=== PATIENT | female | born 1930 | race Caucasian/White ===

== ENCOUNTER 2016-08-07 23:42 | Day surgery (SDC) | payer OTHER, MEDICARE ==
[~2016-08-07] VITALS: Ht 154.9 cm; Wt 90.7 kg
--- NOTE | 2016-08-08 | NUR ---
DR AGUIRRE IN FOR MONIQUEAL
--- NOTE | 2016-08-08 00:04 | ED GENERAL ADULT ---
History of Present Illness General Chief Complaint: Upper Extremity Problem Stated Complaint: "PER PT RT ARM PAIN" Source: patient, family, old records Exam Limitations: no limitations Vital Signs & Intake/Output Vital Signs & Intake/Output Vital Signs Date Time Temp Pulse Resp B/P B/P Pulse O2 O2 Flow FiO2 Mean Ox Delivery Rate 08/08 0012 96.7 74 18 94/55 97 Room Air Allergies Coded Allergies: adhesive (UNKNOWN 08/03/15) Reconcile Medications Amlodipine Besylate 5 MG TABLET 1 TAB PO DAILY HTN (Reported) Calcium Carbonate/Vitamin D3 (Oysco D Tablet) 1 EACH TABLET 1 TAB PO DAILY SUPPLEMENT (Reported) Gabapentin 300 MG CAPSULE 1 CAP PO BID NEUROPATHY (Reported) Hydralazine HCl 50 MG TABLET 1 TAB PO BID HTN (Reported) Insulin Detemir (Levemir Flextouch) 100 UNIT/ML (3 ML) INSULN.PEN 8 UNITS DAILY DM II (Reported) Levothyroxine Sodium 125 MCG TABLET 1 TAB PO DAILY HYPOTHYROID (Reported) Losartan Potassium 50 MG TABLET 50 MG PO DAILY Blood Pressure Metoprolol Succ XL (Toprol Xl) 50 MG TAB HTN (Reported) Nephro-Vitamins (Nephro-Danis Tablet) 0.8 MG TABLET 1 TAB PO DAILY Supplement. Repaglinide (Prandin) 1 MG TABLET 1 MG PO 0800,1200,1700 Diabetes. Please take 1 mg, before each meal, breakfast, lunch and dinner. If you skip any meal, please do not take this medication. Simvastatin (Zocor*) 20 MG TABLET 1 TAB PO QPM CHOLESTEROL (Reported) Triage Nurses Notes Reviewed? yes HPI: Patient had a shunt placed in her right upper extremity on 08/07/2016. Patient was discharged home at approximately 4:30 in the afternoon. Family was instructed to keep an eye on her right hand and make sure it did not turn cyanotic to the touch. Patient took Tylenol and was able to fall asleep in a recliner. Patient woke up with extreme pain to her right hand. The pain is pins and needles like in description. The pain is constant. There are no aggravating or mitigating factors. There is no radiation. Family noticed that her hand was very cold to touch and very pale in color. Patient was brought in for evaluation. Pain is currently 8 out of 10. Past History Travel History Traveled to [place] past 21 day No Medical History Any Pertinent Medical History? see below for history Neurological: NEUROPATHY EENT: NONE Cardiovascular: hypertension Respiratory: bronchitis, COPD Gastrointestinal: NONE Hepatic: GALL STONES Renal: NONE (nephrotic sydrome), chronic kidney disease (stage 3) Musculoskeletal: NONE Psychiatric: NONE Endocrine: diabetes, hypothyroidism Blood Disorders: NONE Cancer(s): breast cancer, lung cancer CHILD GUIDANCE COUNSELOR/Reproductive: NONE Other Medical Hx: FHx: negative ESRD History of MRSA: No History of VRE: No History of CDIFF: Yes Pneumonia Vaccine: 10/09/14 Influenza Vaccine: 12/16/15 Surgical History Surgical History: cholecystectomy, LT BREAST REMOVAL lung cancer status post gammaknife Psychosocial History Who do you live with Son Services at Home None What is your primary language Panamanian Tobacco Use: Never used ETOH Use: denies use Illicit Drug Use: denies illicit drug use Family History Family History, If Any: MOTHER FH: myocardial infarction, Onset: 40-50. FH: stroke, Onset: 40-50. Hx Contributory? No Review of Systems Review of Systems Constitutional: Reports: no symptoms. EENTM: Reports: no symptoms. Respiratory: Reports: no symptoms. Cardiovascular: Reports: no symptoms. GI: Reports: no symptoms. Genitourinary: Reports: no symptoms. Musculoskeletal: Reports: see HPI. Skin: Reports: see HPI. Neurological/Psychological: Reports: no symptoms. Hematologic/Endocrine: Reports: no symptoms. Immunologic/Allergic: Reports: no symptoms. All Other Systems: Reviewed and Negative Physical Exam Physical Exam General Appearance: well developed/nourished, alert, awake, anxious, moderate distress Head: atraumatic Eyes: Bilateral: PERRL, EOMI. Ears, Nose, Throat: normal pharynx, normal ENT inspection, hearing grossly normal Neck: normal inspection, supple, full range of motion Respiratory: normal breath sounds, chest non-tender, no respiratory distress, lungs clear Cardiovascular: regular rate/rhythm, NO PULSE TO RIGHT RADIAL Gastrointestinal: normal bowel sounds, soft, non-tender, no organomegaly Back: normal inspection, vertebral tenderness Extremities: RIGHT HAND IS PALE AND COOL TO TOUCH, NO PALPABLE THRILL BUT THERE IS A BRUIT. Neurologic/Psych: awake, alert, oriented x 3, normal gait, normal mood/affect, DECREASED SENSATION RIGHT HAND Skin: RIGHT HAND PALE AND CAP REFILL PROLONGED Core Measures ACS in differential dx? No CVA/TIA Diagnosis: No Severe Sepsis Present: No Septic Shock Present: No Progress Differential Diagnoses I considered the following diagnoses in my evaluation of the patient: [VASCULAR INSUFFICINECY] Plan of Care: Orders Procedure Date/time Status Nothing by Mouth 08/08 B Active US-UPPER EXT BILAT DOPP ARTER 08/08 699 Active PARTIAL THROMBOPLASTIN TIME 08/08 149 Active PROTHROMBIN TIME 08/08 149 Active COMPREHENSIVE METABOLIC PANEL 08/08 149 Active CBC WITHOUT DIFFERENTIAL 08/08 149 Active Pathway - chart 08/09 147 Active Patient Data 08/09 147 Active Code Status 08/09 147 Active Admit to inpatient 08/09 139 Active EKG 08/09 139 Active VTE Mechanical Prophylaxis 08/08 UNK Active Vital Signs 08/08 UNK Active Intake & Output 08/08 UNK Active FingerStick- Glucose 08/08 UNK Active Activity/Ambulation 08/08 UNK Active Current Medications Sig/Stevenson Start time Last Medication Dose Stop Time Status Admin Clopidogrel Bisulfate 75 MG DAILY 08/08 0215 AC (Plavix) Heparin Sodium 25,000 UNIT Q24H 08/08 0200 CAN (Porcine) (Heparin) Sodium Chloride 500 ML Acetaminophen 500 MG Q6P PRN 08/08 014 AC (Tylenol) Dextrose/Sodium 1,000 ML .Q20H 08/08 0145 AC Chloride (D5-Normal Saline) Ondansetron HCl 4 MG Q8P PRN 08/08 014 AC (Zofran) CONSULT VASCULAR (CARLA MONGE,SONY Garrett) Initial ED EKG: NSR, nonspecific ST T wave chg, FIRST DEGREE HB Prior EKG: unchanged Departure Departure Disposition: STILL A PATIENT Condition: Stable Clinical Impression Primary Impression: Steal syndrome dialysis vascular access Referrals: TOÑITO MONGE,BRENDAN Ocampo (PCP/Family) Departure Forms: Customer Survey General Discharge Information Admission Note Spoke With: BERNADETTE LEHMAN MD Documentation of Exam: Documentation of any treatments & extenuating circumstances including Concerns Regarding Discharge (functional status, medication knowledge or non-compliance, living conditions, etc.) that warrant an admission rather than observation: [ Admitted to the vascular service with medicine consultation. Patient will need renal consultation and dialysis today.] Critical Care Note Critical Care Note Critical Care Time: non-applicable
--- NOTE | 2016-08-08 00:13 | NUR ---
85/F PRESENTS TO ED WITH C/C RIGHT ARM SEVERE PAIN /10 STARTED AT ABOUT 4PM YESTERDAY. S/P FISTULA SHUNT PLACEMENT YESTERDAY MORNING. RIGHT ARM PALE, NO SENSATION, NEGATIVE CAPILLARY REFILL. POSITIVE BRUIT AND NEGATIVE THRILL. UNABLE TO OBTAIN PERIPHERAL PULSE VIA DOBBLER. DR. AGUIRRE NOTIFIED. MEDICATED WITH TYLENOL NO. 3 AT THIS TIME.
--- NOTE | 2016-08-08 01:21 | NUR ---
SURGICAL JUSTIN CHANDLER IN ROOM EVALUATING THE PT.
--- NOTE | 2016-08-08 01:40 | NUR ---
PT ON DIALYSIS SUNDAY/SUNDAY/SUNDAY. DIALYSIS CATHETER ON RIGHT UPPER CHEST WALL.
--- NOTE | 2016-08-08 02:11 | Admission Core Measures ---
Admission Meds I reviewed the following Meds: Current Medications Sig/Stevenson Start time Last Medication Dose Stop Time Status Admin Acetaminophen 500 MG Q6P PRN 08/08 144 UNVr (Tylenol) Clopidogrel Bisulfate 75 MG DAILY 08/08 214 UNVr (Plavix) Dextrose/Sodium 1,000 ML .Q20H 08/08 144 UNVr Chloride (D5-Normal Saline) Heparin Sodium 25,000 UNIT Q24H 08/08 020 CAN (Porcine) (Heparin) Sodium Chloride 500 ML Ondansetron HCl 4 MG Q8P PRN 08/08 144 AC (Zofran) Acute Coronary Syndrome Inclusion Criteria ACS Diagnosis No Inpatient Core Measures LDL Reminder: If No, please order W/I first 24hr of stay Congestive Heart Failure Inclusion Criteria CHF Diagnosis No Cerebrovascular accident Inclusion Criteria CVA/TIA Diagnosis No Inpatient Core Measures Bedside Swallow Eval Reminder: If BSE failed, place ST order Antithrombotic Reminder: Order Antithrombotic Medication by end of day 2 Antithrombotic Reminder: Document Reason Antithrombotic Not ordered by end of day 2 AFIB/Flutter Reminder: If Present, add to problem list AFIB/Flutter Reminder: Order Anticoag Medication for pts with AFIB/Flutter Atherosclerosis Reminder: If Present, add to problem list LDL Reminder: If No, please order W/I first 24hr of stay PT Order Reminder: If No, please order Venous thromboembolism Inpatient Core Measures VTE Risk Factors: Acute medical illness, Age > 40 No [facility] VTE prophylaxis d/t No contraindications No VTE 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 - Parenteral Anticoagulation (IV or SC) needs to be - given along with Warfarin therapy. VTE Diagnosis No VTE Type NONE VTE Confirmed by (Test) NONE Problem List As ranked by this Provider includes Assessment & Plan 1. Steal syndrome dialysis vascular access HOME MEDS Home Med List Amlodipine Besylate 5 MG TABLET 1 TAB PO DAILY HTN (Reported) Calcium Carbonate/Vitamin D3 (Oysco D Tablet) 1 EACH TABLET 1 TAB PO DAILY SUPPLEMENT (Reported) Gabapentin 300 MG CAPSULE 1 CAP PO BID NEUROPATHY (Reported) Hydralazine HCl 50 MG TABLET 1 TAB PO BID HTN (Reported) Insulin Detemir (Levemir Flextouch) 100 UNIT/ML (3 ML) INSULN.PEN 8 UNITS DAILY DM II (Reported) Levothyroxine Sodium 125 MCG TABLET 1 TAB PO DAILY HYPOTHYROID (Reported) Losartan Potassium 50 MG TABLET 50 MG PO DAILY Blood Pressure Nephro-Vitamins (Nephro-Danis Tablet) 0.8 MG TABLET 1 TAB PO DAILY Supplement. Repaglinide (Prandin) 1 MG TABLET 1 MG PO 0800,1200,1700 Diabetes. Simvastatin (Zocor*) 20 MG TABLET 1 TAB PO QPM CHOLESTEROL (Reported)
--- NOTE | 2016-08-08 02:30 | History & Physical ---
General Information and HPI History of Present Illness: 85-year-old female with extensive past medical history presents to the emergency department with complaint of pain, coolness and lack of pulse in her right hand. Approximately 12 hours ago she underwent AV fistula creation with graft in her right upper extremity. Details about this procedure unknown as there is no operative note in the computer. Per family she left that hospital today around 4 PM and her hand at that time was cool and pulseless. Since her arrival home her hand has become more cool and more painful. Tylenol is not helping with the pain in the Donte treatment in the emergency department. Here in the ER she is given Tylenol with Codeine which has lessened her symptoms. Per the ER, in no pulse or Doppler signal has been appreciated in the right hand. Of note she is due for dialysis today 08/08/2016. She has a right- sided permacath for access. Allergies/Medications Allergies: Coded Allergies: adhesive (UNKNOWN 08/03/15) Home Med list Amlodipine Besylate 5 MG TABLET 1 TAB PO DAILY HTN (Reported) Calcium Carbonate/Vitamin D3 (Oysco D Tablet) 1 EACH TABLET 1 TAB PO DAILY SUPPLEMENT (Reported) Gabapentin 300 MG CAPSULE 1 CAP PO BID NEUROPATHY (Reported) Hydralazine HCl 50 MG TABLET 1 TAB PO BID HTN (Reported) Insulin Detemir (Levemir Flextouch) 100 UNIT/ML (3 ML) INSULN.PEN 8 UNITS DAILY DM II (Reported) Levothyroxine Sodium 125 MCG TABLET 1 TAB PO DAILY HYPOTHYROID (Reported) Losartan Potassium 50 MG TABLET 50 MG PO DAILY Blood Pressure Metoprolol Succ XL (Toprol Xl) 50 MG TAB HTN (Reported) Nephro-Vitamins (Nephro-Danis Tablet) 0.8 MG TABLET 1 TAB PO DAILY Supplement. Repaglinide (Prandin) 1 MG TABLET 1 MG PO 0800,1200,1700 Diabetes. Please take 1 mg, before each meal, breakfast, lunch and dinner. If you skip any meal, please do not take this medication. 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 FH: stroke, Onset: 40-50. Psychosocial History Who Do You Live With? spouse Services at Home: None ETOH Use: denies use Illicit Drug Use: denies illicit drug use Functional Ability Ambulation: walker Review of Systems Review of Systems Constitutional: Reports: see HPI. Exam & Diagnostic Data Last 24 Hrs of Vital Signs/I&O Vital Signs Date Time Temp Pulse Resp B/P B/P Pulse O2 O2 Flow FiO2 Mean Ox Delivery Rate 08/08 0012 96.7 74 18 94/55 97 Room Air Intake & Output 08/08 0800 08/08 0000 08/07 1600 Intake Total 50 Output Total Balance 50 Intake, Oral 50 Patient 200 lb Weight Physical Exam Cardiovascular Normal S1, Normal S2 Lungs Clear to Auscultation Abdomen Soft, No Tenderness Vascular RIGHT UPPER EXTREMITY: nO RADIAL PULSE, NO RADIAL SIGNAL, RIGHT-HAND COOL TO TOUCH, PALE, DECREASED CAPILLARY REFILL, GROSS MOTOR AND SENSORY INTACT THOUGH DECREASED WHEN COMPARED TO LEFT HAND. sURGICAL DRESSINGS INTACT WITH BLOODY STAINING UNDER ADHESIVE DRESSING Assessment/Plan Assessment: 85-year-old female with a steal syndrome in her right upper extremity due to AV fistula creation with graft approximately 12 hours ago, currently with limited motor and sensory of the right hand, which is cool and pale and without radial pulse or dopplerable signals. Case assessment with Dr. Matos. Patient will be admitted to vascular surgery service. She'll be kept nothing by mouth with IV fluid hydration. Nonessential home medications will be held. Plavix to start now. Arterial ultrasound of the right upper extremity in the morning. Dr. Matos will be in the morning to reevaluate. She will likely require surgical intervention for this steal syndrome. Medical team to consult for medical comanagement, As Ranked By This Provider Problem List: 1. Steal syndrome dialysis vascular access Core Measures/Miscellaneous Acute Coronary Syndrome ACS Diagnosis: No Cerebrovascular Accident CVA/TIA Diagnosis: No Congestive Heart Failure CHF Diagnosis: No Venous Thromboembolism VTE Risk Factors: Age > 40 [facility] d/t: No contraindications No VTE Pharm Prophylaxis d/t: No contraindications VTE Diagnosis: No VTE Type: NONE VTE Confirmed by (Test): NONE Severe Sepsis Severe Sepsis Present: No Septic Shock Septic Shock Present: No Miscellaneous Documentation Attending Case Discussed With: LAKE HENDRIX MD Primary Care Physician: BRENDAN SIBLEY MD Patient sees these Specialists na Level of Patient Care: General Surgical
--- NOTE | 2016-08-08 02:40 | NUR ---
IV #24 ESTABLISHED ON RIGHT HAND. LABS DRAWN AND SENT. PLAVIX PO AND D5 NS UP INFUSING AT 50ML/HR ORDERED.
[2016-08-08 02:45] LABS: ABSOLUTE BASOPHIL COUNT 0 /CUMM (0.0-0.2); ABSOLUTE EOSINOPHIL COUNT 0.2 /CUMM (0.0-0.7); ABSOLUTE GRANULOCYTE CT 3.8 /CUMM (1.4-6.5); ABSOLUTE LYMPH COUNT 1.3 /CUMM (1.2-3.4); ABSOLUTE MONOCYTE COUNT 0.4 /CUMM (0.10-0.60); BASOPHIL % 0.3 % (0.0-2.0); EOSINOPHIL % 3.1 % (0-5); HEMATOCRIT 30.1 % (37-47); MEAN CORPUSCULAR HGB 32.9 PG (27.0-31.0); MEAN CORPUSCULAR HGB CONC 33.3 G/DL (33.0-37.0); MEAN CORPUSCULAR VOLUME 98.6 FL (81.0-99.0); MEAN PLATELET VOLUME 5.8 FL (7.4-10.4); PLATELET COUNT 189 /CUMM (130-400); RBC DISTRIBUTION WIDTH 15.4 % (11.5-14.5); RED BLOOD CELL CT 3.05 /CUMM (4.20-5.40); WHITE BLOOD CELL COUNT 5.7 /CUMM (4.8-10.8)
[2016-08-08 02:53] LABS: PT 11.2 SEC (9.4-12.5); PTT 32 SEC (25-37)
--- NOTE | 2016-08-08 02:54 | NUR ---
FINGERSTICK GLUCOSE LEVEL READING 195
--- NOTE | 2016-08-08 03:00 | NUR ---
RIGHT HAND STILL PALE, POSITIVE MOVEMENT AND SENSATION. UNABLE TO PALPATE RADIAL PULSE. IV INFUSING WITHOUT ISSUES. NO C/O PAIN AT THIS TIME.
--- NOTE | 2016-08-08 03:03 | Cons- Medical ---
SUNNY SPENCER 08/08/16 0303: General Information and HPI Consulting Request Date of Consult: 08/08/16 Requested By: BERNADETTE LEHMAN MD Reason for Consult: ESRD Source of Information: patient, family, old records Exam Limitations: no limitations History of Present Illness: Mrs. Puga is a pleasant 85-year-old female with significant past medical history of left-sided lung adenocarcinoma status post CyberKnife, with recently confirmed right-sided lung cancer by biopsy [has an appointment to f/u for CyberKnife evaluation on August 31], left sided breast cancer s/p surgery and LN dissection, hypothyroidism, diabetes, HTN and heparin-induced thrombocytopenia. She also has a significant past medical history of end-stage renal disease secondary to diabetes, on hemodialysis Sunday, , Sunday who had an AV fistula creation with graft in her right upper extremity earlier this afternoon. She presented to the emergency department this evening with complaints of right hand pain from the elbow down, pallor and paresthesias. Per her son and [id number] or sitting at the bedside, she had similar complaints after the procedure finished at approximately 4:30. They also note that she did not have radial pulses at that time. At the time of the interview she stated that her pain had significantly improved. Of note she was given Tylenol with codeine in the emergency department. Aside from her paresthesias and pain, she has no other acute complaints. She denies any chest pain, dyspnea, palpitations, lightheadedness, dizziness, diplopia, or tinnitus. She also denies any fever, chills, diaphoresis, nausea/vomiting, constipation or diarrhea. Of note, since being discharged from rehabilitation in December 2015, the patient has been nonambulatory and wheelchair bound. In the emergency department, vitals were temperature 96.7, pulse rate 74, respiratory 18, blood pressure 94/55 saturating 97% on room air. Labs were significant for H&H 10/30.1, platelet count 189. Chemistry significant for sodium 133, potassium 4.5, BUNs/creatinine 4.3/4.0. Glucose 152. Allergies/Medications Allergies: Coded Allergies: heparin (Severe, HEPARIN INDUCED THROMBOCYTOPINIA 08/08/16) adhesive (UNKNOWN 08/03/15) Home Med List: Amlodipine Besylate 5 MG TABLET 1 TAB PO DAILY HTN (Reported) Calcium Carbonate/Vitamin D3 ([place] D Tablet) 1 EACH TABLET 1 TAB PO DAILY SUPPLEMENT (Reported) Gabapentin 300 MG CAPSULE 1 CAP PO BID NEUROPATHY (Reported) Hydralazine HCl 50 MG TABLET 1 TAB PO BID HTN (Reported) Insulin Detemir (Levemir Flextouch) 100 UNIT/ML (3 ML) INSULN.PEN 8 UNITS DAILY DM II (Reported) Levothyroxine Sodium 125 MCG TABLET 1 TAB PO DAILY HYPOTHYROID (Reported) Losartan Potassium 50 MG TABLET 50 MG PO DAILY Blood Pressure Metoprolol Succ XL (Toprol Xl) 50 MG TAB HTN (Reported) Nephro-Vitamins (Nephro-Danis Tablet) 0.8 MG TABLET 1 TAB PO DAILY Supplement. Repaglinide (Prandin) 1 MG TABLET 1 MG PO 0800,1200,1700 Diabetes. Please take 1 mg, before each meal, breakfast, lunch and dinner. If you skip any meal, please do not take this medication. Simvastatin (Zocor*) 20 MG TABLET 1 TAB PO QPM CHOLESTEROL (Reported) Current Medications: Current Medications Sig/[place] Start time Last Medication Dose Route Stop Time Status Admin Acetaminophen 500 MG Q6P PRN 08/08 0145 AC PO Clopidogrel Bisulfate 225 MG ONCE ONE 08/08 314 DCr PO 08/08 031 Clopidogrel Bisulfate 225 MG ONCE ONE 08/08 031 UNVr PO 08/08 031 Clopidogrel Bisulfate 0 .STK-MED ONE 08/08 0223 DC PO Clopidogrel Bisulfate 75 MG DAILY 08/08 0215 AC / PO 0239 Dextrose/Sodium 1,000 ML .Q20H 08/08 0145 AC / Chloride IV 0239 Heparin Sodium 25,000 UNIT Q24H 08/08 0200 CAN (Porcine) IV Sodium Chloride 500 ML Insulin Human Regular 0 Q6 08/08 0233 AC SC Ondansetron HCl 4 MG Q8P PRN 08/08 0145 AC IV Review of Systems Review of Systems Constitutional: Reports: see HPI. 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 FH: stroke, Onset: 40-50. Psychosocial History Who Do You Live With? spouse Services at Home: None ETOH Use: denies use Illicit Drug Use: denies illicit drug use Functional Ability Ambulation: walker Exam & Diagnostic Data Last 24 Hrs of Vital Signs/I&O Vital Signs Date Time Temp Pulse Resp B/P B/P Pulse O2 O2 Flow FiO2 Mean Ox Delivery Rate 08/08 0256 95.9 71 20 105/55 91 Room Air 08/08 0012 96.7 74 18 94/55 97 Room Air Intake & Output 08/08 0800 08/08 0000 08/07 1600 Intake Total 50 Output Total Balance 50 Intake, Oral 50 Patient 90.718 kg Weight Physical Exam General Appearance: well developed/nourished, no apparent distress, alert, awake , comfortable Head: atraumatic, normal appearance Ears, Nose, Throat: normal ENT inspection Neck: normal inspection, supple Respiratory: chest non-tender, no respiratory distress, quiet respiration, rales (at the bases BL) Cardiovascular: regular rate/rhythm, 2/6 systolic murmur Peripheral Pulses: 0 radial (R), 4+ radial (L) Gastrointestinal: normal bowel sounds, soft, non-tender Extremities: +2 BL LE edema to the proximal wood Neurologic/Psych: Sensation in tact in the right forearm. Sensation in tact in the right hand, but diminished compared to the left. Sensation diminishes going from proximal to distal, with no sensation to fine touch in the fingertips. Last 24 Hrs of Labs/Brian: Laboratory Tests 08/08/16 0235: Anion Gap 12, Estimated GFR 11 L, BUN/Creatinine Ratio 10.8, Glucose 152 H, Calcium 8.0 L, Total Bilirubin 0.3, AST 20, ALT 24, Alkaline Phosphatase 63, Total Protein 5.7 L, Albumin 2.9 L, Globulin 2.8, Albumin/Globulin Ratio 1.0 L, PT 11.2, INR 1.07, APTT 32, CBC w Diff NO MAN DIFF REQ, RBC 3.05 L, MCV 98.6 , MCH 32.9 H, RDW 15.4 H, MPV 5.8 L, Gran % 67.0, Lymphocytes % 22.2, Monocytes % 7.4, Eosinophils % 3.1, Basophils % 0.3, Absolute Granulocytes 3.8, Absolute Lymphocytes 1.3, Absolute Monocytes 0.4, Absolute Eosinophils 0.2, Absolute Basophils 0, PUBS MCHC 33.3 Diagnostic Data EKG Results NSR @68 bpm. 1 degree AVB w MA 256ms. QTc 451. Assessment/Plan Assessment/Plan Mrs. Puga is a pleasant 85-year-old female with significant past medical history of lung adenocarcinoma, hypothyroidism, diabetes, HTN and heparin- induced thrombocytopenia and end-stage renal disease secondary to diabetes, on hemodialysis Sunday, , Sunday who had an AV fistula creation with graft in her right upper extremity earlier this afternoon. Problem List/Assessment and Plan Vascular access steal syndrome * The patient does have absent distal pulses at the moment with pallor and pain * Vascular surgery on board, plan to go for RUE U/S tomororw with plans to go to the OR tomorrow. * This is a known complication of a fistula placement, occurring approximately 1 % of patients. We will defer to the vascular surgery expertise for management but if the patient were to undergo a procedure with contrast, such as an arteriogram, dialysis should be performed after vascular intervention. * Normally, IV heparin would be indicated, but pt has a history of HIT. * We will load with plavix 300mg now and then start 75 mg in the am * Pt will be kept NPO at midnight. ESRD on hemodialysis * BUN/Cr slightly up from this morning (Cr was 3.7 now 4.0) * She is on gentle hydration of NS at 50cc/hour * She has a right sided portocath. Please consult nephro to schedule HD tomorrow * Please avoid NSAIDs * Pt can be restarted on her nephro-vits once eating Diabetes * As pt is NPO, consider novolin NPO sliding scale with q4 FSG checks * Patient is on levemir 8 units in the am daily. * Please also dose half the dose, 4 units tomorrow morning as the patient is NPO. * Once the patient is eating again, please increase to 8 units daily. * Patients gabapentin can be resumed once she is eating Hypertension * Pt was hypotensive * Last meds taken were the august 06 evening, prior to intervention in the afternoon. * Please hold antihypertensive meds. * If the patient gets hypertensive, please start metoprolol first then her other antihypertensives. Hypothyroidism * Continue home dose of synthroid, 125 daily Hyperlipidemia * Pt can be restarted on her simvastatin at 20mg daily once eating DNR/DNI NPO No heparin give hx of HIT Thank you for the consult Problem List: 1. Steal syndrome dialysis vascular access 2. IDDM (insulin dependent diabetes mellitus) 3. History of lung cancer 4. ESRD (end stage renal disease) on dialysis 5. Adenocarcinoma, lung 6. Diabetes mellitus 7. DNR (do not resuscitate) 8. DNI (do not intubate) Consult Acknowledgment - Thank you for your consult request. WHITNEY MONGE, [facility] 08/08/16 0323: Assessment/Plan Consult Acknowledgment - Thank you for your consult request. Attending MD Review Statement Attending Statement Attending MD Statement: examined this patient, discuss w/resident/PA/METAL SPRAYER, agreed w/resident/PA/METAL SPRAYER, discussed with family Attending Assessment/Plan: 85 yo F with h/o COPD, NSCLC s/p cyber knife (2012), ESRD on dialysis (T/T/S), nephrotic syndrome, T2DM c/b retinopathy and neuropathy, hypothyroidism, HTN, left breast cancer s/p mastectomy, previous TIA's/stroke, who is s/p AV fistula creation with graft on August [address] Carter, presents with severe right arm pain, cool to touch and change in color. Patient denies chest pain, lightheadedness, dyspnea, nausea or palpitations. Medicine being consulted for co-management. Last dialysis was on Sunday (August 05). Patient was last admitted to [facility] (Dec 2015) for fluid overload/ CKD requiring dialysis, recurrent pleural effusion, recurrent lung cancer (right lower lobe), demand ischemia, Cdiff diarrhea and thrombocytopenia with workup consistent with HIT. Patient left AMA during this admission. Patient is scheduled for cyber knife procedure on August 31. Vitals: afebrile, HR 70's, BP 94/55 --> 105/55, sats 97% RA. Exam: Awake, lethargic under effect of codeine. Chest basilar crackles otherwise clear, right chest permacath site C/D/I. Heart S1S2 regular, systolic murmur+, Abdomen: soft, NT; LE: b/l pedal edema chronic. Right arm pale, cold to touch, no radial pulse, reduced sensation and power. AV graft - positive bruit, no thrill. Labs: H/H 10/ 30.1, INR 1.07, Na 133, BUN 43, creat 4.0, glucose 152, [place] 8.0. EKG: SR, no new changes. Echo (2016): EF 60%, stage 1 diastolic dysfunction. 1. Right UE extremity steal syndrome in the setting of recent AV fistula creation. Admit to Vascular service, plan for arterial doppler in AM and eventual OR for intervention. NPO, IV fluids. Plavix loading dose 300 mg daily followed by 75 mg daily. No IV heparin due to previous h/o HIT. Pain management with Tylenol with codiene. 2. ESRD on dialysis. Plan for dialysis in AM, most likely post surgical procedure. Nephro consult. 3. T2DM. Acccucheks, insulin NPO SS, levemir in AM (half of home dose so 4 mg tomorrow), resume 8 mg from dayafter. Hold repaglinide. Check HbA1c. Continue gabapentin for neuropathy. 4. Hypotension, borderline. Hold losartan and amlodipine. Ok to resume metoprolol from AM. 5. Hypothyroidism. Ct. Synthroid. DVT ppx Alps. Full code. Discussed in detail with patient, patient's son and daughter in law at bedside.
--- NOTE | 2016-08-08 03:07 | NUR ---
[facility]'S CONTACT PHONE NO. [phone]
--- NOTE | 2016-08-08 03:23 | NUR ---
MEDICATED WITH LOADING DOSE OF ADDITIONAL 225MG OF PLAVIX PO ORDERED. FINGER STICK 195. NOVOLIN SC 4 UNITS PER SLIDING SCALE.
--- NOTE | 2016-08-08 03:24 | NUR ---
TURNED AND REPOSITIONED FOR COMFORT. NOTED +4 PITTING EDEMA BILATERAL LOWER EXTREMITIES. POSITIVE PEDAL PULSE AND CMS. BILATERAL LOWER EXTREMITIES NOTED MILD REDNESS WITH DRY SKIN.
--- NOTE | 2016-08-08 04:00 | NUR ---
PT COMFORTABLY SLEEPING. WOKE UP DURING CARE. RIGHT HAND CIRCULATION NOTED POSITIVE MOVEMENT, SENSATION AND UNABLE TO PALPATE RADIAL PULSE. NO CHANGE IN COLOR AND NO SWELLING ON RIGHT HAND.
--- NOTE | 2016-08-08 05:00 | NUR ---
NO CHANGE IN CIRCULATION ON RIGHT ARM FROM PREVIOUS DOCUMENTATION. PT CONTINUE SLEEPING WITH HEART 67 ON MONITOR AND O2 95%RA.
[2016-08-08 05:52] VITALS: BP 92/49
--- NOTE | 2016-08-08 06:17 | NUR ---
VICENTA PENNINGTON Nurse Note by: LIZANDRO VELIZ I agree with the DIAL POLISHER findings/evaluation of this patient's condition. Entered by: LIZANDRO VELIZ Date: 08/08/16 Time: 616
--- NOTE | 2016-08-08 06:44 | NUR ---
NOVOLIN SC ADMINISTERED ORDERED FOR FINGER STICK 251 PER SLIDING SCALE. PLACED ON BEDPAN. CALL LIGHT WITHIN REACH.
--- NOTE | 2016-08-08 06:57 | NUR ---
RIGHT HAND PALE, POSITIVE MOVEMENT AND SENSATION WITH NO RADIAL PULSE. RECHECKED RADIAL PULSE VIA DOPPLER UNOBTAINABLE.
--- NOTE | 2016-08-08 07:00 | NUR ---
PT DIDN'T VOID. TOOK BEDPAN OUT. REPOSITIONED FOR COMFORT. RESTING COMFORTABLY WITH NO C/O PAIN. CALL LIGHT WITHIN REACH.
[2016-08-08 07:26] VITALS: BP 94/48
--- NOTE | 2016-08-08 09:51 | NUR ---
PTS FAMILY AT BEDSIDE REQUESTING TO SPEAK WITH MD. HOUSE STAFF PAGED
--- NOTE | 2016-08-08 09:52 | NUR ---
SURGICAL PA AT BEDSIDE TO TALK WITH FAMILY
--- NOTE | 2016-08-08 09:53 | NUR ---
PT RETURNED FROM US
--- NOTE | 2016-08-08 10:23 | PN- Vascular Surgery ---
Subjective Subjective: pain is better in the RUE. improved after plavix and warm blankets. tingling noted in the hands and fingers. Objective Vital Signs and I&Os Vital Signs Date Time Temp Pulse Resp B/P B/P Pulse O2 O2 Flow FiO2 Mean Ox Delivery Rate 08/08 0851 97.0 70 18 100/54 96 Room Air 08/08 0726 96.4 70 16 94/48 96 Room Air 08/08 0552 97.6 70 18 92/49 96 Room Air 08/08 0545 97.4 66 20 92/49 94 Room Air 08/08 0256 95.9 71 20 105/55 91 Room Air 08/08 0012 96.7 74 18 94/55 97 Room Air Intake & Output 08/08 1600 08/08 0000 08/07 1600 08/07 0000 Intake Total 50 Output Total Balance 50 Intake, Oral 50 Patient 200 lb Weight Physical Exam: Well-developed well-nourished elderly female, AO 3 no acute distress. Right upper extremity, dressing in the antecubital fossa is mildly bloody. Distally the hand and fingers have a pallor and mildly bluish discoloration they are cool to touch, she has normal range of motion. Sensation is intact. Capillary refill is delayed Results Recent Imaging Studies: Discussed with radiologist, right upper extremity arterial ultrasound shows AV fistula is thrombosed Assessment/Plan Assessment/Plan Thrombosed AV fistula postop day #1 To OR today around 1 PM for revision of AV fistula with Dr.Kuchar Todd pt and family. NPO IVF cont plavix, no heparin due to HIP fup med consultation rec. Core Measures/Miscellaneous Venous Thromboembolism VTE Risk Factors: Age > 40, Surgery VTE Contraindications: Docu Bleeding Disorder VTE Diagnosis: No VTE Type: NONE VTE Confirmed by (Test): NONE Beta Ange Is Beta Ange a Home Med? No Antibiotics Is Patient on Antibiotics? No
--- NOTE | 2016-08-08 13:15 | NUR ---
OR TO COME FOR PATIENT IN 20-30 MINUTES.
[2016-08-08 13:16] VITALS: BP 97/55
--- NOTE | 2016-08-08 13:45 | NUR ---
PT. TO OR
--- NOTE | 2016-08-08 15:04 | ULTRASOUND REPORT ---
EXAMINATION: US DUPLEX UPPER EXTREMITY ARTERY/GRAFT LIMITED, RIGHT CLINICAL INFORMATION: Status post creation of right upper extremity dialysis graft yesterday now with poor flow. COMPARISON: None TECHNIQUE: Ultrasound of the right upper extremity was performed along with color flow Doppler imaging and spectral analysis. FINDINGS: The patient's right upper arm graft is occluded with no flow whatsoever. The radial artery distal to the graft is open. Venous outflow distal to the graft is patent. The actual distal venous anastomosis was not visualized. Flow in the [place] radial artery is with a velocity of 46.4/4.7 cm/s. Flow in the [place] brachial artery in the upper arm is 171.3/66.0 cm/s. IMPRESSION: Occluded right upper arm dialysis graft.
--- NOTE | 2016-08-08 15:53 | Operative Report ---
Operative/Inv Procedure Report Surgery Date: 08/08/16 Name of Procedure: Right upper extremity a-v graft plication. Pre-Operative Diagnosis: Right arm steal syndrome secondary to a-v graft. Post-Operative Diagnosis: Same. Estimated Blood Loss: scant Surgeon/Cinnamon Grinder: Derrick Tijerina M.D. Anesthesia: local monitored anesthesi Implants: None. Urine Output: N/A. Drains: None. Specimens: None. Operative/Procedure Note Note: Patient was brought to the operating room, placed in a supine position on the table. Right arm was prepped and draped. Radial and ulnar arteries were auscultated with doppler. No distal signals were auscultated until graft was externally compressed, confirming steal syndrome. Local anesthetic was used to infiltrate skin overlying graft approximately 10 cm above arterial anastomosis. Incision was carried through skin, subcutaneous tissues. Graft was exposed, 6-0 Prolene was used to plicate the graft. Doppler signal now showed byphasic signal over radial and ulnar arteries. Incision irrigated with antibiotic solution. Subcutaneous tissues approximated with 3-0 Vicryl. Skin closed with enoc. Sterile dressings applied. Discharge Disposition: PACU
--- NOTE | 2016-08-08 16:17 | PN- Vascular Surgery ---
Surgical Brief Attending Note Brief Attending Note: VASCULAR ATTENDING NOTE: Patient seen and examined in a.m. Patient is status post right upper extremity AV graft creation yesterday by Dr. Tijerina. Patient began to have discomfort upon discharge yesterday. She represented to the emergency room today due to significant discomfort. Physical exam demonstrates that her hand is perfused. It is cool and slightly discovered but perfused. She has no dopplerable signals. She does have a palpable AV graft. 85-year-old female with likely steal syndrome secondary to AV graft creation. We will discuss with Dr. Tijerina timing of renal intervention to prevent further ischemia. Keep patient n.p.o. at this time.
== END 2016-08-08 ==
LOC: ERH 23:42 → ERHI 08-08 01:40 → CANBEDREQ 08-08 03:08 → STS 08-08 15:54 → ERH 08-08 16:59 → CANBEDREQ 08-08 17:40
PROVIDERS: Emergency Medicine
DX: T82.898A Other specified complication of vascular prosthetic devices, implants and grafts, initial encounter (principal); G89.18 Other acute postprocedural pain; Y82.8 Other medical devices associated with adverse incidents; E11.40 Type 2 diabetes mellitus with diabetic neuropathy, unspecified; E11.22 Type 2 diabetes mellitus with diabetic chronic kidney disease; I12.9 Hypertensive chronic kidney disease with stage 1 through stage 4 chronic kidney disease, or unspecified chronic kidney disease; N18.3 Chronic kidney disease, stage 3 (moderate); Z79.4 Long term (current) use of insulin; E03.9 Hypothyroidism, unspecified; J44.9 Chronic obstructive pulmonary disease, unspecified; Z85.3 Personal history of malignant neoplasm of breast; Z85.118 Personal history of other malignant neoplasm of bronchus and lung
CPT/HCPCS: 93005; 93010; J0131; J0690; J2250; J7042

== ENCOUNTER → 2016-08-07 | Day surgery (SDC) | payer OTHER, MEDICARE ==
[~2016-08-07] VITALS: Ht 154.9 cm; Wt 90.7 kg
[~2016-08-07] MED LIST: ACTOS45 M1 PO; AMLODIPINE BESYL5 M1 PO; ASPIRIN81 M4 PO; B12 1MG PE1000 MCG/M IM; CALCIUM + D 5001 TAB PO; CEFUROXIME500 MG PO; FLAGYL500 MG PO; FUROSEMIDE20 MG PO; FUROSEMIDE80 M1 PO; GABAPENTIN300 M2 PO; GABAPENTIN300 MG PO; GLIPIZIDE10 M2 PO; GLIPIZIDE10 MG PO; HYDRALAZINE HCL50 M1 PO; HYDROCHLOROTH12.5 MG PO; LEVEMIR FL100 UNIT/1; LEVEMIR FL100 UNIT/1 SC; LEVEMIR FL300 UNITS/ SC; LEVEMIR100 UNIT/1 SC; LEVOTHYROXINE0.1 M1 PO; LEVOTHYROXINE100 MC1 PO; LEVOTHYROXINE125 MCG PO; LIDODERM 5% PAT1 PAT TOP; LIDODERM1 EACH TOP; LISINOPRIL2.5 M1 PO; LISINOPRIL2.5 MG PO; LOPRESSOR 25MG25 MG PO; LOSARTAN POTASS50 M1 PO; METOPROLOL TART25 M1 PO; MULTI-DAY VITA1 EACH PO; MULTIVITAMIN1 TAB PO; NEPHRO-VITE TA0.8 MG PO; NEURONTIN300 M1 PO; NEURONTIN300 MG PO; NORVASC 5MG TAB5 MG PO; NOVOLOG100 UNIT/2 SC; ONGLYZA2.5 M1 PO; ONGLYZA2.5 MG PO; OYSCO D TABLET1 EACH PO; PIOGLITAZONE HC30 M1 PO; PIOGLITAZONE45 MG PO; PRANDIN1 M1 PO; Robitussin PO; SIMVASTATIN20 MG PO; SYNTHROID125 MCG PO; TOPROL XL50 M1 PO; VITAB121000 PO; VITAMIN B-121000 MC3 PO; VITAMIN D1000 IU PO; ZOCOR20 M1 PO
--- NOTE | 2016-08-07 13:35 | RADIOLOGY REPORT ---
EXAMINATION: XR HUMERUS, RIGHT CLINICAL INFORMATION: Evaluate for retained small needle in arm. Incomplete count. COMPARISON: None TECHNIQUE: Single frontal views of the right mid and distal humerus and proximal forearm. FINDINGS: There are 2 linear radiopaque densities seen projected over the proximal and mid right humeral shaft. The radiopaque density over the proximal humeral shaft is incompletely included and measures at least 8 mm long. The second radiopaque density over the mid right humeral shaft measures 5 mm long. These may represent tiny needle fragments. Several cutaneous enoc are seen in place. IMPRESSION: 2 linear radiopaque densities seen projected over the proximal and mid right humeral shaft, possibly small retained needle fragments. Close clinical correlation is requested. This critical result was discussed with nurse Rojo in the operating room with Dr. Tijerina 08/07/2016, 1:25 PM and it was ascertained that the content and urgency of this report was understood at the time of direct communication.
--- NOTE | 2016-08-08 11:45 | Operative Report ---
Operative/Inv Procedure Report Surgery Date: 08/07/16 Name of Procedure: Right upper extremity a-v graft placement. Pre-Operative Diagnosis: End-stage renal disease. Post-Operative Diagnosis: Same. Estimated Blood Loss: scant Surgeon/Airfield Engineer Officer: Derrick Tijerina M.D. Anesthesia: local monitored anesthesi Implants: 6 mm propatin graft. Drains: None. Operative/Procedure Note Note: Patient was brought to the operating room, placed in a supine position on the table. Right arm was prepped and draped. Transverse incision was made at the level of elbow, brachial artery and vein exposed. The artery appeared appropriate size for graft placement, however the vein was somewhat small. Another incision was made over the upper arm and confuluence of brachial and axillary veins was exposed. 6 mm propatin graft was then placed into a subcutaneous tunnel and end-to-side anastomosis were performed with brachila artery and axillary vein with continuous 6-0 prolene suture. Clamps were released and flow restored. Thrill was palpable over the proximal portion of the graft, brachial artery pulse was palpble distal to the anasomosis. Subcutaneous tissues closed with 4-0 Vicryl. [place] used on the skin. Sterile dressings applied. Discharge Disposition: PACU
== END ==
LOC: STS 03:01
DX: E10.22 Type 1 diabetes mellitus with diabetic chronic kidney disease (principal); N18.6 End stage renal disease; I12.0 Hypertensive chronic kidney disease with stage 5 chronic kidney disease or end stage renal disease; E10.40 Type 1 diabetes mellitus with diabetic neuropathy, unspecified; Z79.4 Long term (current) use of insulin; E03.9 Hypothyroidism, unspecified; Z85.3 Personal history of malignant neoplasm of breast; Z85.118 Personal history of other malignant neoplasm of bronchus and lung; Z87.891 Personal history of nicotine dependence
CPT/HCPCS: 36415; 73060-RT; J1644; J2250

== ENCOUNTER 2017-06-24 17:36 | Inpatient (IN) | payer OTHER, MEDICARE ==
[~2017-06-24] VITALS: Ht 154.9 cm; Wt 68.7 kg
[~2017-06-24 17:36] MED LIST changes: +BACTRIM DS TAB1 EACH PO; +CLOPIDOGREL75 M1 PO; -LEVEMIR FL100 UNIT/1; +MACRODANTIN50 M1 PO; +OYSCO 500+D TA1 EACH PO; -OYSCO D TABLET1 EACH PO
[2017-06-24] MEDS ORDERED: GABAPENTIN100 M2 PO (18:38)
[2017-06-24] MEDS ORDERED: ALBUTEROL2.5 MG/3 M INH/SOL (18:39)
[2017-06-24] MEDS ORDERED: COUMADIN2.5 M1 PO (18:40)
--- NOTE | 2017-06-24 18:46 | ED AMS/SEIZURE/WEAK/DIZZY ---
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 (Reported) Amlodipine Besylate 5 MG TABLET 1 TAB PO DAILY HTN (Reported) Calcium Carbonate/Vitamin D3 (Oysco 500+D Tablet) 500 MG-200 TABLET 1 TAB PO DAILY SUPPLEMENT (Reported) Cyanocobalamin (Vitamin B-12) 1,000 MCG TABLET 1 TAB PO DAILY VITAMIN SUPPORT (Reported) Gabapentin 100 MG CAPSULE 1 CAP PO BID NERVE PAIN (Reported) Insulin Detemir (Levemir Flextouch) 100 UNIT/ML (3 ML) INSULN.PEN 8 UNITS SC QPM DM II (Reported) Levothyroxine Sodium 125 MCG TABLET 1 TAB PO DAILY AC THYROID (Reported) Losartan Potassium 50 MG TABLET 50 MG PO DAILY Blood Pressure Nephro-Vitamins (Nephro-Danis Tablet) 0.8 MG TABLET 1 TAB PO DAILY Supplement. Repaglinide (Prandin) 1 MG TABLET 1 MG PO 0800,1200,1700 Diabetes. Please take 1 mg, before each meal, breakfast, lunch and dinner. If you skip any meal, please do not take this medication. Simvastatin (Zocor*) 20 MG TABLET 1 TAB PO QPM CHOLESTEROL (Reported) Warfarin Sodium (Coumadin) 2.5 MG TABLET 1 TAB PO DAILY BLOOD THINNER ( Reported) Triage Note: TRIAGE: 86 Y/O FEMALE PRESENTS IN WHEELCHAIR WITH FAMILY. C/O RECENT FALL, INCREASING WEAKNESS. * BILAT UPPER EXTREMITY RESTRICTIONS. PINK BANDS APPLIED. * FALL RISK BAND APPLIED WELL. Triage Nurses Notes Reviewed? yes Onset: Gradual Duration: week(s): (1), changing over time, continues in ED, getting worse Timing: single episode today Injury Environment: home Severity: mild, moderate Severity Numbers: 8 No Modifying Factors: none Associated Symptoms: back pain LMP (ages 10-50): post menopausal : No Patient currently breastfeeds: No HPI: 86-year-old female past medical history of end-stage renal disease on dialysis, breast cancer status post double mastectomy, diabetes, COPD brought in for evaluation of increasing weakness. Family reports that about one week ago patient fell out of her wheelchair. She was leaning forward when the wheelchair was not locked it slid backwards causing her to fall onto her but. She did not hit her head. She is on Coumadin. The fall was witnessed. She was able to get up with help. She had been doing well for the next several days. She usually does not and related baseline but is able to stand and pivot. Today she started complaining of pain in her bilateral pelvis worse on the right side. She was unable to stand and pivot due to pain. No abdominal pain shortness of breath chest pain nausea vomiting diarrhea. She was dialyzed Sunday. She lives at home with her family who takes care of her but currently is unable to ambulate and is not safe at home. She's not taking any medicine for this pain. She rates it as an 8 or 9 out of 10. (Mauir ANDERSON,Wu) Past History Travel History Traveled to [place] past 21 day No Medical History Any Pertinent Medical History? 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 Cancer(s): breast cancer, LUNG (R LUNG ACTIVE) CARPENTERS/Reproductive: NONE Other Medical Hx: FHx: negative ESRD History of MRSA: No History of VRE: No History of CDIFF: No Surgical History Surgical History: cholecystectomy, LT BREAST REMOVAL lung cancer status post gammaknife AV FISTULA CREATION WITH GRAFT 08/07/16 Psychosocial History Who do you live with Son Services at Home None What is your primary language Sinhala Tobacco Use: Quit <30 days ago ETOH Use: denies use Illicit Drug Use: denies illicit drug use Family History Family History, If Any: MOTHER FH: myocardial infarction, Onset: 40-50. FH: stroke, Onset: 40-50. Hx Contributory? No (Wu Garay) Review of Systems Review of Systems Constitutional: Reports: no symptoms. EENTM: Reports: no symptoms. Respiratory: Reports: no symptoms. Cardiovascular: Reports: no symptoms. GI: Reports: no symptoms. Genitourinary: Reports: no symptoms. Musculoskeletal: Reports: back pain, muscle pain, muscle stiffness. Skin: Reports: no symptoms. Neurological/Psychological: Reports: no symptoms. Hematologic/Endocrine: Reports: no symptoms. Immunologic/Allergic: Reports: no symptoms. All Other Systems: Reviewed and Negative (Wu Garay) Physical Exam Physical Exam General Appearance: well developed/nourished, no apparent distress, alert, awake Head: atraumatic, normal appearance, no signs of trauma to the head. There are no scalp hematomas or lacerations. No greenberg signs or raccoon eyes Eyes: Bilateral: normal appearance, PERRL, EOMI. Ears, Nose, Throat: normal pharynx, normal ENT inspection, hearing grossly normal Neck: normal inspection, supple, full range of motion, no midline tenderness Respiratory: normal breath sounds, chest non-tender, no respiratory distress, lungs clear, no tenderness to palpation of the bilateral ribs or chest wall Cardiovascular: regular rate/rhythm, normal peripheral pulses Peripheral Pulses: 2+ radial (R), 2+ radial (L) Gastrointestinal: normal bowel sounds, soft, non-tender, no organomegaly Back: normal inspection, decreased range of motion, there is pain to palpation of the bilateral lumbar paraspinous muscles and lumbar sacral spine. No bruising swelling or abrasions no step-offs or deformities range of motion of the back is reduced due to pain. Extremities: range of motion of the bilateral lower extremities is reduced due to pain in the bilateral pelvis., THERE IS BILATERAL LOWER EXTREMITY EDEMA. nO ERYTHEMA OR DISCHARGE, PAIN TO PALPATION IN THE RIGHT HIP. nO BRUISING SWELLING OR ABRASIONS Neurologic/Psych: no motor/sensory deficits, awake, alert, oriented x 3 Skin: intact, normal color, warm/dry Lymphatic: no anterior cervical kwame Core Measures ACS in differential dx? No CVA/TIA Diagnosis No Sepsis Present: No Sepsis Focused Exam Completed? No (Mauri ANDERSON,Wu) Progress Differential Diagnosis: arrythmia, anemia, benign positional vertigo, CVA/stroke , dehydration, electrolyte imbalance, GI bleed, intracranial Hem., intracranial mass/tumor, migraine WOLFE, pneumonia, presyncope, post-traumatic vertigo, sepsis, UTI/pyelo, FRACTURE, CONTUSION, SPRAIN Plan of Care: Orders Procedure Date/time Status Heart Healthy Diet 06/25 B Active LACTIC ACID 06/25 2143 Active Skin/Pressure Ulcer Assess (Sk 06/24 2108 Active Patient Data 06/24 2025 Active ED Holding Orders 06/25 2011 Active Admit to inpatient 06/25 2011 Active Vital Signs 06/25 2011 Active Code Status 06/25 2011 Active URINALYSIS 06/25 1843 Active TROPONIN LEVEL 06/25 1843 Active LACTIC ACID 06/24 184 Active COMPREHENSIVE METABOLIC PANEL 06/24 184 Active CBC WITHOUT DIFFERENTIAL 06/25 1843 Active EKG 06/25 1843 Active Intake & Output 06/24 174 Active Patient seen and evaluated. She is reporting pain in her back and bilateral pelvis after a fall about one week ago. She does not and related baseline but is unable to stand and pivot. No signs of trauma to the head neck chest or abdomen. She is moving all extremities equally. A CT scan of the abdomen and pelvis was obtained which showed fractures of the bilateral SACRAL ALA. no displacement. Patient currently is unable to bear weight due to pain. She will require placement in acute rehabilitation and evaluation by physical therapy. Spoke with case management being that the patient is a dialysis patient and she will be admitted for placement. Patient has a dialysis fistula in the right arm and is status post mastectomy and cannot have blood draws in the left. The family is refusing any arterial sticks in the bilateral radial arteries. There are also refusing femoral sticks. They're requesting that the blood be taken tomorrow when she has dialysis. A IV line was placed into the right hand however we're unable to draw labs off this. Discussed with patient and family about the possible risks of unknown abnormalities in the blood that included electrolyte abnormalities. They understands these risks and agree with the plan. Case discussed with Dr. Bejarano he agrees. Diagnostic Imaging: Viewed by Me: CT Scan. Discussed w/RAD: CT Scan. Radiology Impression: PATIENT: VICENTA PENNINGTON PRESENT AGE: 86 PATIENT ACCOUNT NO: [id number] : 31 LOCATION: [facility] ORDERING PHYSICIAN: Wu ANDERSON SERVICE DATE: 06/24/17 EXAM TYPE: CAT - CT ABD & PELVIS W/O IV CONTRAS EXAMINATION: CT ABDOMEN AND PELVIS WITHOUT CONTRAST CLINICAL INFORMATION: Low back and right hip pain status post fall. COMPARISON: CT abdomen/pelvis 12/28/2016. TECHNIQUE: Multidetector volumetric imaging was performed from the superior aspect of the liver through the pubic symphysis. Sagittal and coronal reformatted images were obtained on the technologist's workstation. DLP: 533.87 mGy-cm FINDINGS: LUNG BASES: Small left pleural effusion with left basilar atelectasis. Stable scarring in the superior aspect of the right lower lobe. LIVER, GALLBLADDER, AND BILIARY TREE: The liver is normal in size, shape, and attenuation. No focal hepatic lesion or biliary ductal dilatation is present. Stable mild pneumobilia. The gallbladder surgically absent. Mild prominence of the common bile duct is unchanged from prior examination and is likely within normal limits postcholecystectomy. PANCREAS: Unremarkable. SPLEEN: Unremarkable. ADRENAL GLANDS: Unremarkable. KIDNEYS AND URETERS: The kidneys are unchanged with atrophy bilaterally and is stable cyst arising from the upper pole the right kidney measuring up to approximately 1.2 cm. There are coarse and vascular calcifications in both kidneys. No renal calculi or hydronephrosis. BLADDER: Unremarkable. GASTROINTESTINAL TRACT: Small hiatal hernia. No obstruction. No abnormal thickening. There is diverticulosis of the colon without evidence of diverticulitis. ABDOMINAL WALL: No significant hernia is appreciated. LYMPH NODES: No enlarged lymph nodes. VASCULAR: Prominent atherosclerotic vascular calcifications of the abdominal aorta and its branches. PELVIC VISCERA: Unremarkable. OSSEOUS STRUCTURES: There are new nondisplaced fractures of both sacral ala extending into the sacroiliac joint bilaterally compatible with insufficiency fracture. No other acute osseous finding. Stable degenerative changes of the sacroiliac joints and stable mild osteoarthritis of both hips. Stable small ossification just anterior the right hip in the region of the iliopsoas tendon is likely dystrophic. There are moderate to severe degenerative changes of the visualized spine which are unchanged. L2 compression fracture or retropulsion of the inferior glenoid is unchanged. IMPRESSION: New, nondisplaced fractures of the bilateral sacral ala, compatible with insufficiency fracture. No other acute osseous finding. Stable small left pleural effusion with mild left basilar atelectasis. DICTATED BY: Thomas Villarreal MD DATE/TIME DICTATED:1936 PRINTED PRODUCTS ASSEMBLER:HUNG DATE/TIME TRANSCRIBED:06/24/171936 Initial ED EKG: sinus tachycardia rate 101, borderline st depression anterolateral leads (Wu Garay) Departure Departure Disposition: STILL A PATIENT Condition: Stable Clinical Impression Primary Impression: Sacral fracture Qualifiers: Encounter type: initial encounter Zone of sacrum fracture: unspecified portion of sacrum Fracture type: closed Qualified Code: S32.10XA - Unspecified fracture of sacrum, initial encounter for closed fracture Secondary Impressions: Gait instability Referrals: Leatha MONGE,Poppy Ocampo (PCP/Family) Departure Forms: Customer Survey General Discharge Information (Wu Garay) Admission Note Spoke With: Whit Powell MD Documentation of Exam: Documentation of any treatments & extenuating circumstances including Concerns Regarding Discharge (functional status, medication knowledge or non-compliance, living conditions, etc.) that warrant an admission rather than observation: [ Pain control, physical therapy consultation and evaluation, renal consultation and dialysis, patient will more than likely require short-term rehabilitation given the sacral fractures.] PA/SECURITY SITE SUPERVISOR Co-Sign Statement Statement: ED Attending supervision documentation- [X] I saw and evaluated the patient. I have also reviewed all the pertinent lab results and diagnostic results. I agree with the findings and the plan of care as documented in the PA's/SECURITY SITE SUPERVISOR's documentation. [X] I have reviewed the ED Record and agree with the PA's/SECURITY SITE SUPERVISOR's documentation. [] Additions or exceptions (if any) to the PAs/SECURITY SITE SUPERVISOR's note and plan are summarized below: [See above note.] (Darci MONGE,Adam Garrett)
--- NOTE | 2017-06-24 19:56 | CT SCAN REPORT ---
EXAMINATION: CT ABDOMEN AND PELVIS WITHOUT CONTRAST CLINICAL INFORMATION: Low back and right hip pain status post fall. COMPARISON: CT abdomen/pelvis 12/28/2016. TECHNIQUE: Multidetector volumetric imaging was performed from the superior aspect of the liver through the pubic symphysis. Sagittal and coronal reformatted images were obtained on the technologist's workstation. DLP: 533.87 mGy-cm FINDINGS: LUNG BASES: Small left pleural effusion with left basilar atelectasis. Stable scarring in the superior aspect of the right lower lobe. LIVER, GALLBLADDER, AND BILIARY TREE: The liver is normal in size, shape, and attenuation. No focal hepatic lesion or biliary ductal dilatation is present. Stable mild pneumobilia. The gallbladder surgically absent. Mild prominence of the common bile duct is unchanged from prior examination and is likely within normal limits postcholecystectomy. PANCREAS: Unremarkable. SPLEEN: Unremarkable. ADRENAL GLANDS: Unremarkable. KIDNEYS AND URETERS: The kidneys are unchanged with atrophy bilaterally and is stable cyst arising from the upper pole the right kidney measuring up to approximately 1.2 cm. There are coarse and vascular calcifications in both kidneys. No renal calculi or hydronephrosis. BLADDER: Unremarkable. GASTROINTESTINAL TRACT: Small hiatal hernia. No obstruction. No abnormal thickening. There is diverticulosis of the colon without evidence of diverticulitis. ABDOMINAL WALL: No significant hernia is appreciated. LYMPH NODES: No enlarged lymph nodes. VASCULAR: Prominent atherosclerotic vascular calcifications of the abdominal aorta and its branches. PELVIC VISCERA: Unremarkable. OSSEOUS STRUCTURES: There are new nondisplaced fractures of both sacral ala extending into the sacroiliac joint bilaterally compatible with insufficiency fracture. No other acute osseous finding. Stable degenerative changes of the sacroiliac joints and stable mild osteoarthritis of both hips. Stable small ossification just anterior the right hip in the region of the iliopsoas tendon is likely dystrophic. There are moderate to severe degenerative changes of the visualized spine which are unchanged. L2 compression fracture or retropulsion of the inferior glenoid is unchanged. IMPRESSION: New, nondisplaced fractures of the bilateral sacral ala, compatible with insufficiency fracture. No other acute osseous finding. Stable small left pleural effusion with mild left basilar atelectasis.
--- NOTE | 2017-06-24 20:31 | History & Physical ---
ZacharyLuis F 06/24/17 2030: General Information and HPI MD Statement: I have seen and personally examined VICENTA PENNINGTON and documented this H&P. The patient is a 86 year old F who presented with a patient stated chief complaint of generalized weakness and pain in the bottom after a fall []. 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 Patient is a poor historian and she was brought in by the family, who gave all the information. According to the family patient was in her usual state of health tenderness back when she slipped from her wheelchair. He reported that patient was sitting in the future and the breaks didn't work and the wheelchair slipped back and patient fell down. She suddenly developed pain in the bottom. She was given pain medication and she was moving around with wheelchair since last couple of days she has generalized weakness. Patient also reporting more pain in the bottom for last couple of days. She denied any chest pain, palpitation, nausea, vomiting, chills, fever, loss of consciousness, abdominal pain, diarrhea, constipation and dysuria. Lastly patient was admitted in December 2016 for temporary dialysis catheter placement as her AV fistula had been thrombosed. She was started on Coumadin. Her last echocardiogram was done in 2015 that showing ejection fraction 60% with stage I diastolic. And left mild pleural effusion with dilated inferior vena cava. ED course: Vitals: Temperature 97.0, pulse 111, respiratory rate 18, blood pressure 136/86, oxygen saturation 97% on room air Labs: No labs were available as patient and her family refused blood draw. Allergies/Medications Allergies: Coded Allergies: heparin (Severe, HEPARIN INDUCED THROMBOCYTOPINIA 11/24/16) adhesive (UNKNOWN 11/24/16) sulfamethoxazole (From BACTRIM) (DIZZINESS 06/24/17) trimethoprim (From BACTRIM) (DIZZINESS 06/24/17) Home Med list Albuterol Sulfate 2.5 MG/3 ML (0.083 %) VIAL.NEB 1 Vial INH/MAIDA AD PRN RESP. (Reported) Amlodipine Besylate 5 MG TABLET 1 TAB PO DAILY HTN (Reported) Calcium Carbonate/Vitamin D3 ([place]co 500+D Tablet) 500 MG-200 TABLET 1 TAB PO DAILY SUPPLEMENT (Reported) Cyanocobalamin (Vitamin B-12) 1,000 MCG TABLET 1 TAB PO DAILY VITAMIN SUPPORT (Reported) Gabapentin 100 MG CAPSULE 1 CAP PO BID NERVE PAIN (Reported) Insulin Detemir (Levemir Flextouch) 100 UNIT/ML (3 ML) INSULN.PEN 8 UNITS SC QPM DM II (Reported) Levothyroxine Sodium 125 MCG TABLET 1 TAB PO DAILY AC THYROID (Reported) Losartan Potassium 50 MG TABLET 50 MG PO DAILY Blood Pressure Nephro-Vitamins (Nephro-Danis Tablet) 0.8 MG TABLET 1 TAB PO DAILY Supplement. Repaglinide (Prandin) 1 MG TABLET 1 MG PO 0800,1200,1700 Diabetes. Please take 1 mg, before each meal, breakfast, lunch and dinner. If you skip any meal, please do not take this medication. 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 FH: stroke, Onset: 40-50. Psychosocial History Who Do You Live With? spouse Services at Home: None ETOH Use: denies use Illicit Drug Use: denies illicit drug use Functional Ability Ambulation: walker Review of Systems Review of Systems Constitutional: Reports: weakness. EENTM: Reports: no symptoms. Cardiovascular: Reports: no symptoms. Respiratory: Reports: no symptoms. GI: Reports: no symptoms. Genitourinary: Reports: no symptoms. Musculoskeletal: Reports: see HPI. Skin: Reports: see HPI. Neurological/Psychological: Reports: no symptoms. Exam & Diagnostic Data Last 24 Hrs of Vital Signs/I&O Vital Signs Date Time Temp Pulse Resp B/P B/P Pulse O2 O2 Flow FiO2 Mean Ox Delivery Rate 06/24 1844 95 Room Air 06/24 1744 97.0 111 18 136/86 97 Room Air Room Air Physical Exam General Appearance Alert, Oriented X3, Cooperative Skin No Rashes Skin Temp/Moisture Exam: Warm/Dry Sepsis Skin Exam (color): Normal for Ethnicity HEENT Atraumatic, PERRLA, EOMI Neck Supple Cardiovascular Normal S1, Normal S2 Lungs Clear to Auscultation Abdomen Soft, No Tenderness Neurological Normal Speech, Normal Tone Extremities No Edema Assessment/Plan Assessment: 86 YO F with PMH of ESRD on dialysis( on Sunday, Sunday, Sunday) through right upper extremity AV fistula, 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 We will admit the patient on general medicine floor to treat for her generalized weakness. Nondisplaced sacral fracture status post fall: -Conservative management with pain control. -Encouraged the patient to take oral food -PT/OT evaluation Generalized weakness: -Possibly due to deconditioning -Physiotherapy -Encourage oral intake History of end-stage renal disease on dialysis: -Follow-up with scheduled dialysis -Nephrology consult -Monitor input and output -Nephro vitamin continue -No NSAIDs -Initially on admission family was refusing to get lab drawn as patient is hard stick and has AV fistula on one side and had mastectomy on the other. Risk of any electrolyte abnormality or significant lab changes was explained to patient and family they agree upon not to draw any labs now but could have tomorrow at the time of dialysis. History of thrombosis of AV fistula: -Continue Coumadin -F/U INR History of hypertension: -Continue home medications History of diabetes: -Accu-Cheks -Insulin NovoLog according to sliding scale History of hypothyroidism: -Continue levothyroxine History of diabetic neuropathy: -Continue home medications History of hyperlipidemia: -Continue atorvastatin DVT prophylaxis: Mechanical only considering patient's history of HIT. CODE STATUS: DNR/DNI As Ranked By This Provider Problem List: 1. Fall 2. Sacral fracture Core Measures/Misc (12/17) Acute Coronary Syndrome ACS Diagnosis: No Congestive Heart Failure Congestive Heart Failure Diagnosis No Cerebrovascular Accident CVA/TIA Diagnosis: No VTE (View Protocol) VTE Risk Factors Age>40 No Mechanical VTE Prophylaxis d/t N/A MechProphylax Ordered No VTE Pharm Prophylaxis d/t NA PharmProphylax ordered Sepsis (View protocol) Sepsis Present: No Jaquleine Alvarado 06/24/17 2248: Resident Review Statement Resident Statement: examined this patient, discussed with application support intern, agreed with application support intern Other Findings: As patient is a 86-year-old female with past medical history significant for end-stage renal disease on dialysis on Mondays, Wednesdays and Fridays, 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 According to the family patient is wheelchair bound but able to pivot herself from wheelchair to bed and can stand at baseline. 10 days ago she was trying to get something from the floor while she was sitting on wheelchair which was unlocked and slid back and patient fell on her buttock. She was doing okay for a couple of days but since Sunday she is very weak, lethargic and complaining of worsening pain. She denied any sensory loss, neurological deficit, loss of consciousness, head strike, vision changes, dizziness, any incontinence of urine or bowels, diarrhea or constipation, chest pain, shortness of breath, any nausea or vomiting. She get IV acetaminophen in ER and she was pain-free at the moment. Patient is very hard to stick and has left-sided AV fistula placement and she had mastectomy on right side and the family was insisting not to draw any blood. Patient is supposed to get her dialysis tomorrow and can get blood work done as per family request. Her vital signs on admission were temperature 97.0, pulse 111, respiratory rate 18, blood pressure 136/86 and she was saturating 97% on room air. 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 We will admit her on general medical floor and will address following problems Problem list 1. History of fall resulted in nondisplaced sacral fracture 2. History of end-stage renal disease on dialysis on Wednesdays and Fridays 3. 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 History of -insulin-dependent diabetes 5. History of HIT 6. History of breast cancer status post mastectomy 7. History of non-small cell lung cancer Plan 1. We will admit patient on general medical floor 2. Initially on admission family was refusing to get lab drawn as patient is hard stick and has AV fistula on one side and had mastectomy on the other. Risk of any electrolyte abnormality or significant lab changes was explained to patient and family they agree upon not to draw any labs now but could have tomorrow at the time of dialysis. We will check all her lab work tomorrow with dialysis including CVC, basic electrolyte panel, magnesium, phosphorous and INR 3. Nephrology consultation in a.m. to schedule her for dialysis tomorrow 4. Accu-Cheks with NovoLog coverage 5. We will continue all her home medication including Coumadin 6. PT and OT evaluation in a.m. 7. Call risk Pharmacological DVT prophylaxis Renal dialysis diet Patient is DNI DNR Whit Powell 06/25/17 0116: Attending MD Review Statement Attending Statement Attending MD Statement: examined this patient, discuss w/resident/PA/GUEST ROOM INSPECTOR, agreed w/resident/PA/GUEST ROOM INSPECTOR, discussed with family, reviewed EMR data (avail), reviewed images, amended to note Attending Assessment/Plan: CC: Pelvic pain PMH: ESRD on hemodialysis since 2015, adenocarcinoma left lung S/P resection with recurrence and right side currently on closer monitoring not under treatment, left breast cancer S/P mastectomy and chemotherapy in 1997, DM, COPD, CVA, HIT , thrombosis of right AV fistula S/P declotting and angioplasty History is obtained from patient's family, son and [id number]. Patient states with them, wheelchair-bound, transfers with assistance bed to commode or to wheelchair. Approximately 10 days back patient fell down. She was trying to reach out something from her wheelchair when the wheelchair brakes became loose, wheelchair slid back and patient fell on the ground on her buttocks. She did not have any dizziness or presyncopal episode at that time a fall. She did not lose consciousness or have head trauma. She was not evaluated after that fall but since last 5 days patient has been noticing increased pelvic pain more so with the movements, the pain gradually got worse and today she could not even move from commode to the bed. So her family brought her to ER for further evaluation. Vitals: Afebrile, pulse in 90s, RR 18, blood pressure 136/86, saturating well on room air. On exam: A O 3, cooperative, no acute distress, neck supple, JVD normal, no lymphadenopathy, mucosa moist, no focal neurological deficit, strength normal in all extremities but limited lower extremity movement secondary to pelvic pain. + 1 leg edema, no obvious skin rashes or inflammation except small skin break on medial side of her right buttock, no pressure ulcers CVS: S1-S2, RRR. RS: Clear to auscultate bilaterally. Abdomen: Soft, NT, ND, bowel sounds present. Abdomen and pelvis CT scan without contrast: New, nondisplaced fractures of the bilateral sacral ala, compatible with insufficiency fracture. No other acute osseous finding. Stable small left pleural effusion with mild left basilar atelectasis. Assessment and plan 86 year old female with extensive past medical history and multiple comorbidities presented in ER for pain in pelvis after a fall which happened 10 days back. No focal neurological deficit or weakness but patient was found to have nondisplaced fracture in bilateral sacral ala, compatible with insufficiency fracture. Initially patient was pivoting with assistance, from bed to wheelchair and commode, but since last few days decreased level of activity and could not move at all today because of pain. Patient needs further evaluation for OT PT and rehabilitation and pain management. Patient's son is very clear that patient refuses to go for in-house rehabilitation and wants at home rehabilitation. Also patient has left mastectomy so left arm cannot be used for IV access or blood draws and she has AV fistula on the right upper extremity , very difficult stick and could not get labs from the right upper extremity. She has a small peripheral line in the forearm on the right side. Patient's son insists that labs should be drawn at the time of dialysis tomorrow. Risks of acidosis, hyperkalemia, electrolyte abnormalities are discussed with patient's son and [id number]. + Accidental fall + Bilateral sacral alae fracture + Hx of ESRD on hemodialysis, DM, COPD, CVA, HIT - Admit to general medicine - Get CBC, BMP, LFT with the lab sample with dialysis - Arrange for hemodialysis tomorrow, nephrology consult - OT PT evaluation - Evaluation for at-home rehabilitation - Pain control with IV acetaminophen, patient refuses opiates and tramadol. NSAIDs cannot be used for ESRD - No heparin or Lovenox with a history of HIT : Continue home doses of warfarin, check INR with the labs tomorrow - Hold oral hypoglycemic, continue sliding scale insulin - Continue rest of her home medications - DNR/DNI
[2017-06-24 22:47] VITALS: BP 120/80
--- NOTE | 2017-06-25 01:18 | Admission Certification ---
Admission Certification Certification Statement - As attending physician, I certify that at the time of - admission, based on clinical presentation, severity of - symptoms, need for further diagnostic testing and - therapeutic interventions, and risk of adverse outcomes - without in-hospital treatment, in my clinical assessment, - this patient requires an acute hospital stay for a minimum - of two nights or longer. I have also considered psychsocial - factors such as support system, advanced age, financial - issues, cognitive issues, and failed out-patient treatments, - past re-admission history, safety of patient, and lack of - compliance as applicable. Specific rationale supporting this admission is: Accidental fall, fracture of sacral alae
--- NOTE | 2017-06-25 07:35 | PN- Housestaff ---
See Addendum Subjective Follow-up For: Bialteral Sacral ala fracture ESRD on dialysis Subjective: Seen and examined She remains stable overnight. Reportedly having pain in the back, not very unpleasant. Able to eat her breakfast. Aware that she is going to dialysis today. Review of Systems Constitutional: Reports: see HPI. Objective Last 24 Hrs of Vital Signs/I&O Vital Signs Date Time Temp Pulse Resp B/P B/P Pulse O2 O2 Flow FiO2 Mean Ox Delivery Rate 06/25 0718 97.9 87 20 96 Room Air 06/24 2247 97.8 90 20 120/80 95 Room Air 06/24 2104 97.2 91 18 99/48 95 Room Air 06/24 1844 95 Room Air 06/24 1744 97.0 111 18 136/86 97 Room Air Room Air Intake & Output 06/25 0800 06/25 0000 06/24 1600 Intake Total 580 Output Total Balance 580 Intake, IV 100 Intake, Oral 480 Patient 71.384 kg Weight Weight Bed scale Measurement Method Physical Exam General Appearance: Alert, Oriented X3, Cooperative, No Acute Distress Skin: No Rashes, No Breakdown Skin Temp/Moisture Exam: Warm/Dry HEENT: Atraumatic, PERRLA, EOMI Neck: Supple Cardiovascular: Normal S1, Normal S2, 3/6 systolic murmur present Lungs: Clear to Auscultation, Normal Air Movement Abdomen: Normal Bowel Sounds, Soft, No Tenderness Neurological: Normal Speech, Normal Tone, Sensation Intact Extremities: No Clubbing, No Cyanosis Vascular: Normal Pulses, Pulses Symmetrical Current Medications: Current Medications Sig/Stevenson Start time Last Medication Dose Route Stop Time Status Admin Acetaminophen 1,000 MG Q8H 06/24 230 AC 06/25 IV 0637 Acetaminophen 1,000 MG TID 06/24 2199 DC IV Acetaminophen 0 .STK-MED ONE 06/24 2032 DC IV Acetaminophen 1,000 MG ONCE ONE 06/24 184 DC 06/24 N/A 1 UNIT IV 06/24 Albuterol Sulfate 3 ML Q6-PRN PRN 06/24 2145 AC INH Amlodipine Besylate 5 MG DAILY 06/25 1000 AC PO Atorvastatin Calcium 10 MG 1700 06/25 1700 AC PO Calcium/Vitamin D 500 MG DAILY 06/25 1000 AC PO Cyanocobalamin 1,000 MCG DAILY 06/25 1000 AC PO Epoetin Rafita 1,000 UNITS FABRICE WED FELISA .. 06/25 1345 DC IV Epoetin Rafiat 1,000 UNIT Sunday .. 06/25 1345 AC IV Gabapentin 100 MG BID 06/24 2199 AC 06/24 PO 2335 Insulin Aspart 0 TIDAC 06/25 0800 AC SC Levothyroxine Sodium 0.125 MG DAILY AC 06/25 0700 AC 06/25 PO 0637 Losartan Potassium 50 MG DAILY 06/25 1000 AC PO Multivitamins 1 TAB DAILY 06/25 1000 AC PO Warfarin Sodium 2.5 MG ONCE ONE 06/24 2199 DC 06/24 PO 06/24 2201 2336 Last 24 Hrs of Lab/Brian Results Last 24 Hrs of Labs/Mics: Laboratory Tests 06/24/17 2144: Lactic Acid Cancelled 06/24/17 1844: Lactic Acid Cancelled, Troponin I Cancelled, CBC w Diff Cancelled, WBC Cancelled , RBC Cancelled, Hgb Cancelled, Hct Cancelled, MCV Cancelled, MCH Cancelled, MCHC Cancelled, RDW Cancelled, Plt Count Cancelled, MPV Cancelled Assessment/Plan Assessment: Patient is a 86 YO F with extensive PMH of Diabetes with retinopathy/neuropathy /nephropathy, HTN, ESRD on dialysis, left mastectomy and chemotherapy for left breast CA (1997), left lung adenocarcinoma resection, COPD not on home O2, 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 presented in ER for pain in pelvis after a fall which happened 10 days back. No focal neurological deficit or weakness but patient was found to have nondisplaced fracture in bilateral sacral ala. Initially patient was pivoting with assistance, from bed to wheelchair and commode, but since last few days decreased level of activity and could not move at all today because of pain. Problem list 1. Accidental fall 2. Bilateral sacral alae fracture 3. ESRD on hemodialysis 4. DM 5. COPD 6. CVA 7. HIT Fall with nondisplaced bialteral sacral ala fracture Patient's son is very clear that patient refuses to go for in-house rehabilitation and wants at home rehabilitation. We will continue conservative management. Physical therapy and occupational therapy to evaluate. Generalized deconditioning She had left sided lung adenocarcinoma with known recurrence on right side -- not on any treatment. She was wheelchair bound at baseline, able to help herself moving to commode as needed. Able to move all four extremities. ESRD on dialysis Underwent dialysis today. Obatained labs, we will follow up. NSAIDs cannot be used for ESRD. Nephrology is on board. Diabetes Mellitus with neuropathy Insulin sliding scale and needs levemir dosing as well. 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 Pain control with IV acetaminophen, patient refuses opiates and tramadol. DVT prophylaxis with warfarin Code status DNR/DNI Problem List: 1. Renal insufficiency 2. Hypothyroid 3. Diabetes mellitus 4. DNI (do not intubate) 5. DNR (do not resuscitate) 6. AV fistula occlusion 7. Sacral fracture Pain Ratin Pain Location: back pain Pain Goal: Pain 4 or less Pain Plan: tylenol prn Tomorrow's Labs & Rationales: none
[2017-06-25 08:47] VITALS: BP 112/60
[2017-06-25 14:51] LABS: ABSOLUTE BASOPHIL COUNT 0 /CUMM (0.0-0.2); ABSOLUTE EOSINOPHIL COUNT 0.1 /CUMM (0.0-0.7); ABSOLUTE GRANULOCYTE CT 4.3 /CUMM (1.4-6.5); ABSOLUTE LYMPH COUNT 0.9 /CUMM (1.2-3.4); ABSOLUTE MONOCYTE COUNT 0.3 /CUMM (0.10-0.60); BASOPHIL % 0.5 % (0.0-2.0); GRANULOCYTE % 75.4 % (42.2-75.2); HEMATOCRIT 28.6 % (37-47); MEAN CORPUSCULAR HGB 35.1 PG (27.0-31.0); MEAN CORPUSCULAR HGB CONC 34.3 G/DL (33.0-37.0); MEAN CORPUSCULAR VOLUME 102.1 FL (81.0-99.0); MEAN PLATELET VOLUME 6.1 FL (7.4-10.4); PLATELET COUNT 331 /CUMM (130-400); RBC DISTRIBUTION WIDTH 13.5 % (11.5-14.5); RED BLOOD CELL CT 2.81 /CUMM (4.20-5.40); WHITE BLOOD CELL COUNT 5.7 /CUMM (4.8-10.8)
[2017-06-25 14:57] LABS: PT 30.5 SEC (9.4-12.5)
--- NOTE | 2017-06-25 15:25 | Cons- Nephrology ---
General Information and HPI Consulting Request Date of Consult: 06/25/17 Requested By: Juliet Soto MD Reason for Consult: Management of ESRD Source of Information: patient, family, old records History of Present Illness: 86-year-old woman with dialysis dependent end-stage renal disease on a Sunday dialysis schedule [facility] [place] now comes in after a recent fall from her wheelchair with a nondisplaced sacral fracture which is being managed conservatively. She has had no recent dialysis issues although this past fall she did require declotting of her right upper arm AV graft. I am unaware of there being a problem with her access since then. She cannot get heparin with dialysis because of a history of heparin-induced thrombocytopenia. 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 Home medications include albuterol, amlodipine, calcium carbonate, B12, gabapentin, insulin, levothyroxine, losartan, Nephro-Danis, Prandin, simvastatin and warfarin. Allergies: TMP/SMX, heparin (HIT), adhesives Family history: Positive for coronary disease and CVA, negative for any known kidney disease in parents or other family members Social history: Ex-smoker, no history of alcohol or drug abuse Allergies/Medications Allergies: Coded Allergies: heparin (Severe, HEPARIN INDUCED THROMBOCYTOPINIA 11/24/16) adhesive (UNKNOWN 11/24/16) sulfamethoxazole (From BACTRIM) (DIZZINESS 06/24/17) trimethoprim (From BACTRIM) (DIZZINESS 06/24/17) Home Med List: Albuterol Sulfate 2.5 MG/3 ML (0.083 %) VIAL.NEB 1 Vial INH/MAIDA AD PRN RESP. (Reported) Amlodipine Besylate 5 MG TABLET 1 TAB PO DAILY HTN (Reported) Calcium Carbonate/Vitamin D3 (Oysco 500+D Tablet) 500 MG-200 TABLET 1 TAB PO DAILY SUPPLEMENT (Reported) Cyanocobalamin (Vitamin B-12) 1,000 MCG TABLET 1 TAB PO DAILY VITAMIN SUPPORT (Reported) Gabapentin 100 MG CAPSULE 1 CAP PO BID NERVE PAIN (Reported) Insulin Detemir (Levemir Flextouch) 100 UNIT/ML (3 ML) INSULN.PEN 8 UNITS SC QPM DM II (Reported) Levothyroxine Sodium 125 MCG TABLET 1 TAB PO DAILY AC THYROID (Reported) Losartan Potassium 50 MG TABLET 50 MG PO DAILY Blood Pressure Nephro-Vitamins (Nephro-Danis Tablet) 0.8 MG TABLET 1 TAB PO DAILY Supplement. Repaglinide (Prandin) 1 MG TABLET 1 MG PO 0800,1200,1700 Diabetes. Please take 1 mg, before each meal, breakfast, lunch and dinner. If you skip any meal, please do not take this medication. Simvastatin (Zocor*) 20 MG TABLET 1 TAB PO QPM CHOLESTEROL (Reported) Warfarin Sodium (Coumadin) 2.5 MG TABLET 1 TAB PO DAILY BLOOD THINNER ( Reported) Review of Systems Review of Systems: Constitutional: Reports: weakness. EENTM: Reports: no symptoms. Cardiovascular: Reports: no symptoms. Respiratory: Reports: no symptoms. GI: Reports: no symptoms. Genitourinary: Reports: no symptoms. Musculoskeletal: Reports: see HPI; she does have pelvic area pain with movement. Skin: Reports: see HPI. Neurological/Psychological: Reports: no symptoms. 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 FH: stroke, Onset: 40-50. Psychosocial History Where Do You Live? Home Who Do You Live With? spouse Services at Home: None Smoking Status: Former Smoker ETOH Use: denies use Illicit Drug Use: denies illicit drug use Functional Ability Ambulation: walker Exam & Diagnostic Data Vital Signs and I&O Vital Signs Date Time Temp Pulse Resp B/P B/P Pulse O2 O2 Flow FiO2 Mean Ox Delivery Rate 06/25 0847 112/60 06/25 0718 97.9 87 20 96 Room Air 06/24 2247 97.8 90 20 120/80 95 Room Air 06/24 2104 97.2 91 18 99/48 95 Room Air 06/24 1844 95 Room Air 06/24 1744 97.0 111 18 136/86 97 Room Air Room Air Intake & Output 06/25 1600 06/25 0400 06/24 1600 06/24 0400 06/23 1600 06/23 0400 Intake Total 970 580 Output Total Balance 970 580 Intake, IV 210 100 Intake, Oral 760 480 Patient 156 lb 157 lb Weight Weight Bed scale Bed scale Measurement Method Physical Exam: General: Well-developed, elderly white female in NAD Skin: No rash or jaundice HEENT: Conjunctivae pink, sclerae anicteric, mucous membranes moist Neck: Without masses or thyromegaly, no supraclavicular or cervical adenopathy Chest: Clear to P&A with diminished breath sounds at bases Heart: Regular rate and rhythm without S3 or rub Abdomen: Soft and nontender without palpable masses or organomegaly Extremities: Without cyanosis or edema; the right upper arm AVG is patent Neuro: Awake and alert, no lateralizing findings, no asterixis or myoclonus Results Pertinent Lab Results: Laboratory Tests 06/25 06/25 06/25 1320 1121 1119 Chemistry Sodium Pending Potassium Pending Chloride Pending Carbon Dioxide Pending Anion Gap Pending BUN Pending Creatinine Pending BUN/Creatinine Ratio Pending Calcium Pending Phosphorus Pending Magnesium Pending Total Bilirubin Pending Direct Bilirubin Pending AST Pending ALT Pending Alkaline Phosphatase Pending Total Protein Pending Albumin Pending Coagulation PT (9.4 - 12.5 SEC) 30.5 H INR (0.90 - 1.19) 2.77 H Hematology CBC w Diff NO MAN DIFF REQ WBC (4.8 - 10.8 /CUMM) 5.7 RBC (4.20 - 5.40 /CUMM) 2.81 L Hgb (12.0 - 16.0 G/DL) 9.8 L Hct (37 - 47 %) 28.6 L MCV (81.0 - 99.0 FL) 102.1 H MCH (27.0 - 31.0 PG) 35.1 H MCHC (33.0 - 37.0 G/DL) 34.3 RDW (11.5 - 14.5 %) 13.5 Plt Count (130 - 400 /CUMM) 331 MPV (7.4 - 10.4 FL) 6.1 L Gran % (42.2 - 75.2 %) 75.4 H Lymphocytes % (20.5 - 51.1 %) 16.0 L Monocytes % (1.7 - 9.3 %) 6.1 Eosinophils % (0 - 5 %) 2.0 Basophils % (0.0 - 2.0 %) 0.5 Absolute Granulocytes (1.4 - 6.5 /CUMM) 4.3 Absolute Lymphocytes (1.2 - 3.4 /CUMM) 0.9 L Absolute Monocytes (0.10 - 0.60 /CUMM) 0.3 Absolute Eosinophils (0.0 - 0.7 /CUMM) 0.1 Absolute Basophils (0.0 - 0.2 /CUMM) 0 Serology Hep Bs Antigen Pending Cancelled Hep Bs Antibody Pending Cancelled 06/24 06/24 3780 9514 Chemistry Lactic Acid Cancelled Cancelled Troponin I Cancelled Hematology CBC w Diff Cancelled WBC Cancelled RBC Cancelled Hgb Cancelled Hct Cancelled MCV Cancelled MCH Cancelled MCHC Cancelled RDW Cancelled Plt Count Cancelled MPV Cancelled Assessment/Plan Assessment/Recommendations Assessment: 1. ESRD 2. Bilateral sacral nondisplaced fractures following a fall from her wheelchair 3. Multiple significant comorbidities as outlined Recommendations: 1. Hemodialysis today with ultrafiltration to her target weight of 70 kg as tolerated over 3.5 hours; no heparin 2. Would continue her outpatient medications 3. Pain control 4. Physical therapy/rehabilitation/mobilization Thank you. We will follow along with you. Her next dialysis after today would be due on Tuesday 06/27.
[2017-06-25 17:00] VITALS: BP 138/62
[2017-06-25 23:55] VITALS: BP 121/65
[2017-06-26 06:41] VITALS: BP 126/68
--- NOTE | 2017-06-26 07:36 | PN- Housestaff ---
Juvenal MOGNE,Julia 06/26/17 0736: Subjective Follow-up For: Bialteral Sacral ala fracture ESRD on dialysis AVF thrombosis on warfarin Subjective: seen and examined Patient remains in pain all the night. Took several doses of IV tylenol. She reports more pain with movement. Family member at bedside, requests going home for further physical therapy. Review of Systems Constitutional: Reports: see HPI. Comments: ROS negative except the above Objective Last 24 Hrs of Vital Signs/I&O Vital Signs Date Time Temp Pulse Resp B/P B/P Pulse O2 O2 Flow FiO2 Mean Ox Delivery Rate 06/26 0641 97.4 90 20 126/68 95 Room Air 06/26 0000 94 Room Air 06/25 2355 98.2 85 20 121/65 94 06/25 1737 93 138/62 06/25 1737 93 138/62 06/25 1700 93 20 138/62 100 Room Air 06/25 0847 112/60 Intake & Output 06/26 0800 06/26 0000 06/25 1600 Intake Total 300 370 Output Total 250 Balance -250 300 370 Intake, IV 10 Intake, Oral 300 360 Number 2 Bowel Movements Output, Urine 250 Patient 71.214 kg 70.76 kg Weight Weight Bed scale Measurement Method Physical Exam General Appearance: Alert, Oriented X3, Cooperative, Mild Distress Skin: No Rashes, No Breakdown Skin Temp/Moisture Exam: Warm/Dry HEENT: Atraumatic, PERRLA Neck: Supple Cardiovascular: Normal S1, Normal S2, systolic murmur Lungs: Clear to Auscultation, Normal Air Movement Abdomen: Normal Bowel Sounds, Soft, No Tenderness Current Medications: Current Medications Sig/Stevenson Start time Last Medication Dose Route Stop Time Status Admin Acetaminophen 650 MG ONCE ONE 06/26 0600 DC PO 06/26 0601 Acetaminophen 1,000 MG Q8H 06/24 2300 AC 06/26 IV 0955 Albuterol Sulfate 3 ML Q6-PRN PRN 06/24 2145 AC INH Amlodipine Besylate 5 MG DAILY 06/25 1000 AC 06/26 PO 0919 Atorvastatin Calcium 10 MG 1700 06/25 1700 AC 06/25 PO 1736 Calcium/Vitamin D 500 MG DAILY 06/25 1000 AC 06/26 PO 0920 Cyanocobalamin 1,000 MCG DAILY 06/25 1000 AC 06/26 PO 0919 Epoetin Rafita 1,000 UNITS Sunday .. 06/25 1345 DC IV Epoetin Rafita 1,000 UNIT Sunday .. 06/25 1345 AC IV Gabapentin 100 MG BID 06/24 2200 AC 06/26 PO 0919 Insulin Aspart 0 TIDAC 06/25 0800 AC 06/26 SC 1251 Levothyroxine Sodium 0.125 MG DAILY AC 06/25 0700 AC 06/26 PO 0608 Lidocaine 1 PAT DAILY 06/26 1000 AC EXT Losartan Potassium 50 MG DAILY 06/25 1000 AC 06/26 PO 0918 Multivitamins 1 TAB DAILY 06/25 1000 AC 06/26 PO 0918 Warfarin Sodium 2.5 MG COUMADIN 1700 ONE 06/25 1700 DC 06/25 PO 06/25 1701 1737 Assessment/Plan Assessment: Patient is a 86 YO F with extensive PMH of Diabetes with retinopathy/neuropathy /nephropathy, HTN, ESRD on dialysis, left mastectomy and chemotherapy for left breast CA (1997), left lung adenocarcinoma resection, COPD not on home O2, 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 presented in ER for pain in pelvis after a fall which happened 10 days back. No focal neurological deficit or weakness but patient was found to have nondisplaced fracture in bilateral sacral ala. Initially patient was pivoting with assistance, from bed to wheelchair and commode, but since last few days decreased level of activity and could not move at all today because of pain. Problem list 1. Accidental fall 2. Bilateral sacral alae fracture 3. ESRD on hemodialysis 4. DM 5. COPD 6. CVA 7. 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 We will continue conservative management. Physical therapy evaluated today again and recommended 24hr home care considering patient/family requests. She will likely get dischraged tomorrow. Pain management with IV tylenol and local lidoderm patches. No OPIATES Generalized deconditioning She had left sided lung adenocarcinoma with known recurrence on right side -- not on any treatment. She was wheelchair bound at baseline, able to help herself moving to commode as needed. Able to move all four extremities. ESRD on dialysis Underwent dialysis today. Obatained labs, we will follow up. NSAIDs cannot be used for ESRD. Nephrology is on board. Diabetes Mellitus with neuropathy Insulin sliding scale and needs levemir dosing as well. 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 Pain control with IV acetaminophen, patient refuses opiates and tramadol. DVT prophylaxis with warfarin Code status DNR/DNI Problem List: 1. Fall 2. Gait instability 3. Sacral fracture 4. AV fistula occlusion 5. ESRD (end stage renal disease) 6. Weakness Pain Ratin Pain Location: back pain in the sacral region Pain Goal: Pain 4 or less Pain Plan: tylenol Lidoderm patches Tomorrow's Labs & Rationales: CBC and BEP tomorrow Juliet Soto MD 06/26/17 1207: Attending MD Review Statement Attending Statement Attending MD Statement: examined this patient, discuss w/resident/PA/INFANT AND TODDLER TEACHER, agreed w/resident/PA/INFANT AND TODDLER TEACHER, discussed with family, reviewed EMR data (avail), discussed with nursing, discussed with case mgmt, reviewed images, amended to note Attending Assessment/Plan: Patient seen and examined, still in pain but improved than before. Patient working with physical therapy. Vital Signs Date Time Temp Pulse Resp B/P B/P Pulse O2 O2 Flow FiO2 Mean Ox Delivery Rate 06/26 0919 90 126/68 06/26 0918 90 126/68 06/26 0641 97.4 90 20 126/68 95 Room Air 06/26 0000 94 Room Air 06/25 2355 98.2 85 20 121/65 94 06/25 1737 93 138/62 06/25 1737 93 138/62 06/25 1700 93 20 138/62 100 Room Air on exam; aox3, nad. cv; s1, s2, rrr resp; clear abd; soft, nt, bs+ ext; no edema. Laboratory Tests 06/25 1320 Chemistry Sodium (137 - 145 mmol/L) 132 L Potassium (3.5 - 5.1 mmol/L) 4.8 Chloride (98 - 107 mmol/L) 91 L Carbon Dioxide (22 - 30 mmol/L) 24 Anion Gap (5 - 16) 17 H BUN (7 - 17 mg/dL) 72 H Creatinine (0.5 - 1.0 mg/dL) 6.7 *H Estimated GFR (>60 ml/min) 6 L BUN/Creatinine Ratio (7 - 25 %) 10.7 Calcium (8.4 - 10.2 mg/dL) 7.7 L Phosphorus (2.5 - 4.5 mg/dL) 6.6 H Magnesium (1.6 - 2.3 mg/dL) 2.0 Total Bilirubin (0.2 - 1.3 mg/dL) 0.6 Direct Bilirubin (< 0.4 mg/dL) 0.6 H AST (14 - 36 U/L) 17 ALT (9 - 52 U/L) 22 Alkaline Phosphatase (<127 U/L) 96 Total Protein (6.3 - 8.2 g/dL) 6.2 L Albumin (3.5 - 5.0 g/dL) 3.1 L Coagulation PT (9.4 - 12.5 SEC) 30.5 H INR (0.90 - 1.19) 2.77 H Hematology CBC w Diff NO MAN DIFF REQ WBC (4.8 - 10.8 /CUMM) 5.7 RBC (4.20 - 5.40 /CUMM) 2.81 L Hgb (12.0 - 16.0 G/DL) 9.8 L Hct (37 - 47 %) 28.6 L MCV (81.0 - 99.0 FL) 102.1 H MCH (27.0 - 31.0 PG) 35.1 H MCHC (33.0 - 37.0 G/DL) 34.3 RDW (11.5 - 14.5 %) 13.5 Plt Count (130 - 400 /CUMM) 331 MPV (7.4 - 10.4 FL) 6.1 L Gran % (42.2 - 75.2 %) 75.4 H Lymphocytes % (20.5 - 51.1 %) 16.0 L Monocytes % (1.7 - 9.3 %) 6.1 Eosinophils % (0 - 5 %) 2.0 Basophils % (0.0 - 2.0 %) 0.5 Absolute Granulocytes (1.4 - 6.5 /CUMM) 4.3 Absolute Lymphocytes (1.2 - 3.4 /CUMM) 0.9 L Absolute Monocytes (0.10 - 0.60 /CUMM) 0.3 Absolute Eosinophils (0.0 - 0.7 /CUMM) 0.1 Absolute Basophils (0.0 - 0.2 /CUMM) 0 Serology Hep Bs Antigen (NONREACTIVE) NONREACTIVE Hep Bs Antibody (NONREACTIVE) NONREACTIVE A/P: 86 y/o F with pmh sig for Diabetes with retinopathy/neuropathy/nephropathy , HTN, ESRD on dialysis, left mastectomy and chemotherapy for left breast CA ( 1997), left lung adenocarcinoma resection, COPD not on home O2, 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 Patient managed conservatively with pain management and physical therapy. Doing better than before. Pain management is also improved. Physical therapy initially recommended rehabilitation but today patient performed better. Plan will be for her to go home with home services. She is still IV pain medications and we need to switch to oral. Once her pain is better controlled on oral pain meds, she can likely be discharged home tomorrow with home services and physical therapy. Her next dialysis is due tomorrow. Patient on Coumadin, please check INR and dose her Coumadin at 2.5 mg. D/W patient's son at bedside.
--- NOTE | 2017-06-26 13:30 | Discharge Summary ---
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 presented in ER for pain in pelvis after a fall which happened 10 days back. No focal neurological deficit or weakness but patient was found to have nondisplaced fracture in bilateral sacral ala. Initially patient was pivoting with assistance, from bed to wheelchair and commode, but since last few days decreased level of activity and could not move at all today because of pain. Problem list 1. Accidental fall 2. Bilateral sacral alae fracture 3. ESRD on hemodialysis 4. DM 5. COPD 6. CVA 7. 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 We provided conservative management with pain control and physical therapy. After evaluation by Physical therapy - recommended 24hr home care considering patient/family requests. Pain management with IV tylenol and local lidoderm patches. No OPIATES Generalized deconditioning She had left sided lung adenocarcinoma with known recurrence on right side -- not on any treatment. She was wheelchair bound at baseline, able to help herself moving to commode as needed. Able to move all four extremities. ESRD on dialysis Undergoes dialysis on //. Obatained labs with dialysis. NSAIDs cannot be used for ESRD. Nephrology is on board. Diabetes Mellitus with neuropathy Insulin sliding scale and needs levemir dosing as well. 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 Pain control with IV acetaminophen, patient refuses opiates and tramadol. DVT prophylaxis with warfarin Code status DNR/DNI Complications: none Allergies: Coded Allergies: heparin (Severe, HEPARIN INDUCED THROMBOCYTOPINIA 11/24/16) adhesive (UNKNOWN 11/24/16) sulfamethoxazole (From BACTRIM) (DIZZINESS 06/24/17) trimethoprim (From BACTRIM) (DIZZINESS 06/24/17) Significant Procedures: CT abdomen and pelvis IMPRESSION: New, nondisplaced fractures of the bilateral sacral ala, compatible with insufficiency fracture. No other acute osseous finding. Stable small left pleural effusion with mild left basilar atelectasis. 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 (history of HIT) Discharge Disposition: home health services Discharge Instructions General Discharge Information Code Status: Do Not Resucitate/Intubat Patient's Diet: Renal dialysis diet Patient's Activity: as tolerated Follow-Up Instructions/Appts: Please follow up with your PCP in a week Please follow up with your Identity Management Consultant in a week Please continue physical therapy Medications at Discharge Discharge Medications: Continue taking these medications: Calcium Carbonate/Vitamin D3 (Oysco 500+D Tablet) 500 MG-200 TABLET 1 Tablet ORAL DAILY Comments: Last Taken: 06/27/17 Time: 12:00 pm Simvastatin (Zocor*) 20 MG TABLET 1 Tablet ORAL Every night Comments: LIPITOR GIVEN WHILE IN HOSPITAL Last Taken: 06/26/17 Time: 4:00 pm Insulin Detemir (Levemir Flextouch) 100 UNIT/ML (3 ML) INSULN.PEN 8 Units Inject into fatty tissue Every night Comments: NOT GIVEN IN HOSPITAL Nephro-Vitamins (Nephro-Danis Tablet) 0.8 MG TABLET 1 Tablet ORAL DAILY Days = 30 Comments: Last Taken: 06/27/17 Time: 12:00 PM Repaglinide (Prandin) 1 MG TABLET 1 Milligram ORAL 0800,1200,1700 Days = 30 Instructions: Please take 1 mg, before each meal, breakfast, lunch and dinner. If you skip any meal, please do not take this medication. Comments: NOT GIVEN IN HOSPITAL Losartan Potassium (Losartan Potassium) 50 MG TABLET 50 Milligram ORAL DAILY Days = 30 Comments: Last Taken: 06/27/17 Time: 12:00 PM Levothyroxine Sodium (Levothyroxine Sodium) 125 MCG TABLET 1 Tablet ORAL DAILY BEFORE BREAKFAST Comments: Last Taken: 06/27/17 Time: 5:39 am Amlodipine Besylate (Amlodipine Besylate) 5 MG TABLET 1 Tablet ORAL DAILY Comments: Last Taken: 06/27/17 Time: 12:00 pm Cyanocobalamin (Vitamin B-12) 1,000 MCG TABLET 1 Tablet ORAL DAILY Comments: Last Taken: 06/27/17 Time: 12:00 pm Gabapentin (Gabapentin) 100 MG CAPSULE 1 Capsule ORAL TWICE DAILY Comments: Last Taken: 06/27/17 Time: 12:00 pm Albuterol Sulfate (Albuterol Sulfate) 2.5 MG/3 ML (0.083 %) VIAL.NEB 1 Vial Inhale Solution As Directed as needed for RESP. Warfarin Sodium (Coumadin) 2.5 MG TABLET 1 Tablet ORAL DAILY Comments: NOT GIVEN IN HOSPITAL Start taking the following new medications: Lidocaine (Lidoderm) 5 % ADH..PATCH 1 Patch On the skin DAILY Qty = 28 No Refills Instructions: may wear up to 12 hours,wear one patch on each side Comments: Last Taken: 06/27/17 Time: 12:00 PM Acetaminophen (Acetaminophen) 325 MG CAPSULE 1 Tablet ORAL EVERY SIX HOURS as needed for Pain Qty = 50 No Refills Comments: Last Taken: 06/27/17 Time: 1:30 am Copies To: Leatha MONGE,Poppy Ocampo Attending MD Review Statement Documenting Attending: Charles MONGE,Juliet
[2017-06-26 14:46] VITALS: BP 110/70
[2017-06-26 21:33] VITALS: BP 90/60
[2017-06-27 06:52] VITALS: BP 112/64
--- NOTE | 2017-06-27 07:06 | PN- Housestaff ---
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 She endorses no issues. States that she feels better and is currently undergoing dialysis. States her pain is better controlled She denies any fever, chills, nausea or vomiting. Review of Systems Constitutional: Reports: see HPI. Objective Last 24 Hrs of Vital Signs/I&O Vital Signs Date Time Temp Pulse Resp B/P B/P Pulse O2 O2 Flow FiO2 Mean Ox Delivery Rate 06/27 1149 126/70 06/27 1149 126/70 06/27 0652 98.1 83 20 112/64 95 Room Air 06/26 2133 98.5 92 18 90/60 93 Room Air Intake & Output 06/27 1600 06/27 0800 06/27 0000 Intake Total 300 200 Output Total 700 Balance 300 -500 Intake, Oral 300 200 Output, Urine 700 Patient 68.719 kg 72.773 kg Weight Weight Bed scale Measurement Method Physical Exam General Appearance: Alert, Oriented X3, Cooperative Cardiovascular: Regular Rate, Normal S1, Normal S2 Lungs: Clear to Auscultation Abdomen: Normal Bowel Sounds, Soft, No Tenderness Neurological: Normal Speech Extremities: No Edema Vascular: Normal Pulses Current Medications: Current Medications Sig/Stevenson Start time Last Medication Dose Route Stop Time Status Admin Acetaminophen 650 MG .STK-MED ONE 06/27 0131 DC PO 06/27 0132 Acetaminophen 650 MG Q6P PRN 06/26 1530 DCD 06/27 PO 0132 Albuterol Sulfate 3 ML Q6-PRN PRN 06/24 2145 DCD INH Amlodipine Besylate 5 MG DAILY 06/25 1000 DCD 06/27 PO 1149 Atorvastatin Calcium 10 MG 1700 06/25 1700 DCD 06/26 PO 1724 Calcium/Vitamin D 500 MG DAILY 06/25 1000 DCD 06/27 PO 1149 Cyanocobalamin 1,000 MCG DAILY 06/25 1000 DCD 06/27 PO 1149 Epoetin Rafita 1,000 UNIT Sunday .. 06/25 1345 DCD IV Gabapentin 100 MG BID 06/24 2200 DCD 06/27 PO 1149 Insulin Aspart 0 TIDAC 06/25 0800 DCD 06/26 SC 1251 Levothyroxine Sodium 0.125 MG DAILY AC 06/25 0700 DCD 06/27 PO 0539 Lidocaine 1 PAT DAILY 06/26 1000 DCD 06/27 EXT 1149 Losartan Potassium 50 MG DAILY 06/25 1000 DCD 06/27 PO 1149 Multivitamins 1 TAB DAILY 06/25 1000 DCD 06/27 PO 1149 Last 24 Hrs of Lab/Brian Results Last 24 Hrs of Labs/Mics: Laboratory Tests 06/27/17 1025: PT 31.3 H, INR 2.84 H 06/27/17 1000: Anion Gap 16, Estimated GFR 8 L, BUN/Creatinine Ratio 7.6, Calcium 8.3 L, Magnesium 2.0, CBC w Diff MAN DIFF ORDERED, RBC 2.91 L, MCV 101.2 H, MCH 34.5 H, MCHC 34.1, RDW 13.6, MPV 5.9 L, Gran % 68.2, Lymphocytes % 21.7, Monocytes % 7.4, Eosinophils % 2.2, Basophils % 0.5, Absolute Granulocytes 3.6, Segmented Neutrophils 61, Band Neutrophils 6 H, Absolute Lymphocytes 1.1 L, Lymphocytes 24, Monocytes 7, Absolute Monocytes 0.4, Eosinophils 2, Absolute Eosinophils 0.1 , Absolute Basophils 0, Platelet Estimate ADEQUATE, Hypochromic-Microcytic 2+, Anisocytosis 1+, Macrocytic Cells 1+ Assessment/Plan Assessment: Patient is a 86 YO F with extensive PMH of Diabetes with retinopathy/neuropathy /nephropathy, HTN, ESRD on dialysis, left mastectomy and chemotherapy for left breast CA (1997), left lung adenocarcinoma resection, COPD not on home O2, 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 presented in ER for pain in pelvis after a fall which happened 10 days back. No focal neurological deficit or weakness but patient was found to have nondisplaced fracture in bilateral sacral ala. Initially patient was pivoting with assistance, from bed to wheelchair and commode, but since last few days decreased level of activity and could not move at all today because of pain. Problem list 1. Accidental fall 2. Bilateral sacral alae fracture 3. ESRD on hemodialysis 4. DM 5. COPD 6. CVA 7. 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 We will continue conservative management. Physical therapy evaluated today again and recommended 24hr home care considering patient/family requests. She will likely today. Pain management with IV tylenol and local lidoderm patches. No OPIATES Generalized deconditioning She had left sided lung adenocarcinoma with known recurrence on right side -- not on any treatment. She was wheelchair bound at baseline, able to help herself moving to commode as needed. Able to move all four extremities. ESRD on dialysis Underwent dialysis today. Obatained labs, we will follow up. NSAIDs cannot be used for ESRD. Nephrology is on board. Diabetes Mellitus with neuropathy Insulin sliding scale and needs levemir dosing as well. 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 HTN continue Amlodipine 5mg and losartan 50mg daily. Pain control with IV acetaminophen, patient refuses opiates and tramadol. DVT prophylaxis with warfarin Code status DNR/DNI Problem List: 1. Gait instability 2. Fall 3. Sacral fracture 4. Sacral fracture 5. AV fistula occlusion 6. ESRD (end stage renal disease) 7. Weakness Pain Ratin Pain Location: No Pain Endorsed Pain Goal: Remain pain free Pain Plan: NA Tomorrow's Labs & Rationales: NA
--- NOTE | 2017-06-27 09:10 | Patient Discharge Instructions ---
Discharge Instructions General Discharge Information You were seen/treated for: Bilaterral Sacral fracture Special Instructions: Please follow up with your PCP within seven days of discharge. Please inform your finish carpenter of this admission to the hospital. Please have your INR checked on 07/04/2017, cc results to your finish carpenter. Please conitinue with your scheduled dialysis. Diet Recommended Diet: Heart Healthy Activity Activity Self Limited: Yes (As tolerated ) Acute Coronary Syndrome Inclusion Criteria At DC or during hospital stay patient has or had the following: ACS DIAGNOSIS No Discharge Core Measures Meds if any: Prescribed or Continued at Discharge Meds if any: NOT Prescribed or Continued at Discharge Congestive Heart Failure Inclusion Criteria At DC or during hospital stay patient has or had the following: CHF DIAGNOSIS No Discharge Core Measures Meds if any: Prescribed or Continued at Discharge Meds if any: NOT Prescribed or Continued at Discharge Cerebrovascular accident Inclusion Criteria At DC or during hospital stay patient has or had the following: CVA/TIA Diagnosis No Discharge Core Measures Meds if any: Prescribed or Continued at Discharge Meds if any: NOT Prescribed or Continued at Discharge Venous thromboembolism Inclusion Criteria VTE Diagnosis No VTE Type NONE VTE Confirmed by (Test) NONE Discharge Core Measures - Per Current guidelines, there needs to be overlap - treatment for the first 5 days of Warfarin therapy. - If discharged on Warfarin prior to 5 days of - overlap therapy, the patient will need to be - assessed for post discharge needs including - *Post discharge parental anticoagulation - *Warfarin and/or parental anticoagulation education - *Follow up date to check INR post discharge At least 5 days overlap therapy as Inpatient No Meds if any: Prescribed or Continued at Discharge Note: Overlap Therapy is Warfarin and Anticoagulant Meds if any: NOT Prescribed or Continued at Discharge
[2017-06-27] MEDS ORDERED: LIDODERM1 EACH TOP ×2 (09:45→10:25)
[2017-06-27] MEDS ORDERED: TYLENOL EXTRA500 M2 PO (09:46)
[2017-06-27 09:58] LABS: ABSOLUTE BASOPHIL COUNT 0 /CUMM (0.0-0.2); ABSOLUTE EOSINOPHIL COUNT 0.1 /CUMM (0.0-0.7); ABSOLUTE GRANULOCYTE CT 3.6 /CUMM (1.4-6.5); ABSOLUTE LYMPH COUNT 1.1 /CUMM (1.2-3.4); ABSOLUTE MONOCYTE COUNT 0.4 /CUMM (0.10-0.60); BASOPHIL % 0.5 % (0.0-2.0); EOSINOPHIL % 2.2 % (0-5); GRANULOCYTE % 68.2 % (42.2-75.2); HEMATOCRIT 29.4 % (37-47); MEAN CORPUSCULAR HGB 34.5 PG (27.0-31.0); MEAN CORPUSCULAR HGB CONC 34.1 G/DL (33.0-37.0); MEAN CORPUSCULAR VOLUME 101.2 FL (81.0-99.0); MEAN PLATELET VOLUME 5.9 FL (7.4-10.4); PLATELET COUNT 364 /CUMM (130-400); RBC DISTRIBUTION WIDTH 13.6 % (11.5-14.5); RED BLOOD CELL CT 2.91 /CUMM (4.20-5.40); WHITE BLOOD CELL COUNT 5.3 /CUMM (4.8-10.8)
[2017-06-27] MEDS ORDERED: ACETAMINOPHEN325 M3 PO ×2 (10:24→10:25)
[2017-06-27 11:01] LABS: PT 31.3 SEC (9.4-12.5)
--- NOTE | 2017-06-27 11:12 | PN- Att Addend ---
Attending Addendum Attending Brief Note Patient seen and examined at dialysis, doing well. Pain is controlled with oral tylenol and Lidoderm patch. Vital Signs Date Time Temp Pulse Resp B/P B/P Pulse O2 O2 Flow FiO2 Mean Ox Delivery Rate 06/27 0652 98.1 83 20 112/64 95 Room Air 06/26 2133 98.5 92 18 90/60 93 Room Air 06/26 1446 99.1 89 18 110/70 95 on exam; aox3, nad. cv; s1, s2, rrr resp; clear abd; soft, nt, bs+ ext; trace edema Laboratory Tests 06/27 06/27 1025 UNK Chemistry Sodium (137 - 145 mmol/L) 136 L Potassium (3.5 - 5.1 mmol/L) 4.8 Chloride (98 - 107 mmol/L) 95 L Carbon Dioxide (22 - 30 mmol/L) 24 Anion Gap (5 - 16) 16 BUN (7 - 17 mg/dL) 39 H Creatinine (0.5 - 1.0 mg/dL) 5.1 *H Estimated GFR (>60 ml/min) 8 L BUN/Creatinine Ratio (7 - 25 %) 7.6 Calcium (8.4 - 10.2 mg/dL) 8.3 L Magnesium (1.6 - 2.3 mg/dL) 2.0 Coagulation PT Pending INR Pending Hematology CBC w Diff MAN DIFF ORDERED WBC (4.8 - 10.8 /CUMM) 5.3 RBC (4.20 - 5.40 /CUMM) 2.91 L Hgb (12.0 - 16.0 G/DL) 10.0 L Hct (37 - 47 %) 29.4 L MCV (81.0 - 99.0 FL) 101.2 H MCH (27.0 - 31.0 PG) 34.5 H MCHC (33.0 - 37.0 G/DL) 34.1 RDW (11.5 - 14.5 %) 13.6 Plt Count (130 - 400 /CUMM) 364 MPV (7.4 - 10.4 FL) 5.9 L Gran % (42.2 - 75.2 %) 68.2 Lymphocytes % (20.5 - 51.1 %) 21.7 Monocytes % (1.7 - 9.3 %) 7.4 Eosinophils % (0 - 5 %) 2.2 Basophils % (0.0 - 2.0 %) 0.5 Absolute Granulocytes (1.4 - 6.5 /CUMM) 3.6 Segmented Neutrophils (42.2 - 75.2 %) Pending Absolute Lymphocytes (1.2 - 3.4 /CUMM) 1.1 L Absolute Monocytes (0.10 - 0.60 /CUMM) 0.4 Absolute Eosinophils (0.0 - 0.7 /CUMM) 0.1 Absolute Basophils (0.0 - 0.2 /CUMM) 0 A/P; 86 y/o F with pmh sig for Diabetes with retinopathy/neuropathy/nephropathy, HTN, ESRD on dialysis, left mastectomy and chemotherapy for left breast CA (1997 ), left lung adenocarcinoma resection, COPD not on home O2, 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 Patient managed conservatively with pain management and physical therapy. Doing better overall. Patient getting hemodialysis. After that she can be discharged home. Physical therapy had cleared her to go home with 24-hour half-way services. For pain management she will be continued on Tylenol and Lidoderm patches. Check her INR today. We'll repeat her INR check on 07/02/2017 and results should be faxed to her maintenance construction helper Dr. Klein. The rest of her home meds will be continued. D/W patient's son at bedside.
[2017-06-27 11:49] VITALS: BP 126/70
--- NOTE | 2017-06-27 13:14 | PN- Nephrology ---
Assessment/Plan Nephrology Assessment: 1. ESRD 2. Bilateral sacral fractures Suggestion: 1. Hemodialysis today uneventful 2. Okay for discharge from renal standpoint following dialysis Subjective Subjective: No significant complaints although she still has pain with movement. Looks comfortable today. Seen with hemodialysis. For discharge home after treatment. Objective Vital Signs and I&Os Vital Signs Date Time Temp Pulse Resp B/P B/P Pulse O2 O2 Flow FiO2 Mean Ox Delivery Rate 06/27 1149 126/70 06/27 1149 126/70 06/27 0652 98.1 83 20 112/64 95 Room Air 06/26 2133 98.5 92 18 90/60 93 Room Air 06/26 1446 99.1 89 18 110/70 95 Intake & Output 06/27 1600 06/27 0400 06/26 1600 06/26 0400 06/25 1600 06/25 0400 Intake Total 585 585 5819 300 970 580 Output Total 700 250 150 Balance 300 -500 820 150 970 580 Intake, IV 120 210 100 Intake, Oral 300 200 950 300 760 480 Number 2 1 Bowel Movements Output, Urine 700 250 150 Patient 152 lb 157 lb 156 lb 157 lb Weight Weight Bed scale Bed scale Bed scale Measurement Method Physical Exam: General: Well-developed, elderly white female in NAD Skin: No rash or jaundice HEENT: Conjunctivae pink, sclerae anicteric, mucous membranes moist Neck: Without masses or thyromegaly, no supraclavicular or cervical adenopathy Chest: Clear to P&A with diminished breath sounds at bases Heart: Regular rate and rhythm without S3 or rub Abdomen: Soft and nontender without palpable masses or organomegaly Extremities: Without cyanosis or edema; the right upper arm AVG is patent Neuro: Awake and alert, no lateralizing findings, no asterixis or myoclonus Results Pertinent Lab Results: Laboratory Tests 06/27 06/27 1025 UNK Chemistry Sodium (137 - 145 mmol/L) 136 L Potassium (3.5 - 5.1 mmol/L) 4.8 Chloride (98 - 107 mmol/L) 95 L Carbon Dioxide (22 - 30 mmol/L) 24 Anion Gap (5 - 16) 16 BUN (7 - 17 mg/dL) 39 H Creatinine (0.5 - 1.0 mg/dL) 5.1 *H Estimated GFR (>60 ml/min) 8 L BUN/Creatinine Ratio (7 - 25 %) 7.6 Calcium (8.4 - 10.2 mg/dL) 8.3 L Magnesium (1.6 - 2.3 mg/dL) 2.0 Coagulation PT (9.4 - 12.5 SEC) 31.3 H INR (0.90 - 1.19) 2.84 H Hematology CBC w Diff MAN DIFF ORDERED WBC (4.8 - 10.8 /CUMM) 5.3 RBC (4.20 - 5.40 /CUMM) 2.91 L Hgb (12.0 - 16.0 G/DL) 10.0 L Hct (37 - 47 %) 29.4 L MCV (81.0 - 99.0 FL) 101.2 H MCH (27.0 - 31.0 PG) 34.5 H MCHC (33.0 - 37.0 G/DL) 34.1 RDW (11.5 - 14.5 %) 13.6 Plt Count (130 - 400 /CUMM) 364 MPV (7.4 - 10.4 FL) 5.9 L Gran % (42.2 - 75.2 %) 68.2 Lymphocytes % (20.5 - 51.1 %) 21.7 Monocytes % (1.7 - 9.3 %) 7.4 Eosinophils % (0 - 5 %) 2.2 Basophils % (0.0 - 2.0 %) 0.5 Absolute Granulocytes (1.4 - 6.5 /CUMM) 3.6 Segmented Neutrophils (42.2 - 75.2 %) 61 Band Neutrophils (0.0 - 5.0 %) 6 H Absolute Lymphocytes (1.2 - 3.4 /CUMM) 1.1 L Lymphocytes (20.5 - 51.1 %) 24 Monocytes (1.7 - 9.3 %) 7 Absolute Monocytes (0.10 - 0.60 /CUMM) 0.4 Eosinophils (0 - 5.0 %) 2 Absolute Eosinophils (0.0 - 0.7 /CUMM) 0.1 Absolute Basophils (0.0 - 0.2 /CUMM) 0 Platelet Estimate (ADEQUATE) ADEQUATE Hypochromic-Microcytic 2+ Anisocytosis 1+ Macrocytic Cells 1+ 06/25 06/25 06/25 1320 1121 1119 Chemistry Sodium (137 - 145 mmol/L) 132 L Potassium (3.5 - 5.1 mmol/L) 4.8 Chloride (98 - 107 mmol/L) 91 L Carbon Dioxide (22 - 30 mmol/L) 24 Anion Gap (5 - 16) 17 H BUN (7 - 17 mg/dL) 72 H Creatinine (0.5 - 1.0 mg/dL) 6.7 *H Estimated GFR (>60 ml/min) 6 L BUN/Creatinine Ratio (7 - 25 %) 10.7 Calcium (8.4 - 10.2 mg/dL) 7.7 L Phosphorus (2.5 - 4.5 mg/dL) 6.6 H Magnesium (1.6 - 2.3 mg/dL) 2.0 Total Bilirubin (0.2 - 1.3 mg/dL) 0.6 Direct Bilirubin (< 0.4 mg/dL) 0.6 H AST (14 - 36 U/L) 17 ALT (9 - 52 U/L) 22 Alkaline Phosphatase (<127 U/L) 96 Total Protein (6.3 - 8.2 g/dL) 6.2 L Albumin (3.5 - 5.0 g/dL) 3.1 L Coagulation PT (9.4 - 12.5 SEC) 30.5 H INR (0.90 - 1.19) 2.77 H Hematology CBC w Diff NO MAN DIFF REQ WBC (4.8 - 10.8 /CUMM) 5.7 RBC (4.20 - 5.40 /CUMM) 2.81 L Hgb (12.0 - 16.0 G/DL) 9.8 L Hct (37 - 47 %) 28.6 L MCV (81.0 - 99.0 FL) 102.1 H MCH (27.0 - 31.0 PG) 35.1 H MCHC (33.0 - 37.0 G/DL) 34.3 RDW (11.5 - 14.5 %) 13.5 Plt Count (130 - 400 /CUMM) 331 MPV (7.4 - 10.4 FL) 6.1 L Gran % (42.2 - 75.2 %) 75.4 H Lymphocytes % (20.5 - 51.1 %) 16.0 L Monocytes % (1.7 - 9.3 %) 6.1 Eosinophils % (0 - 5 %) 2.0 Basophils % (0.0 - 2.0 %) 0.5 Absolute Granulocytes (1.4 - 6.5 /CUMM) 4.3 Absolute Lymphocytes (1.2 - 3.4 /CUMM) 0.9 L Absolute Monocytes (0.10 - 0.60 /CUMM) 0.3 Absolute Eosinophils (0.0 - 0.7 /CUMM) 0.1 Absolute Basophils (0.0 - 0.2 /CUMM) 0 Serology Hep Bs Antigen (NONREACTIVE) NONREACTIVE Cancelled Hep Bs Antibody (NONREACTIVE) NONREACTIVE Cancelled 06/25 06/24 06/24 0600 2144 1844 Chemistry Sodium Cancelled Potassium Cancelled Chloride Cancelled Carbon Dioxide Cancelled Anion Gap Cancelled BUN Cancelled Creatinine Cancelled BUN/Creatinine Ratio Cancelled Lactic Acid Cancelled Cancelled Phosphorus Cancelled Magnesium Cancelled Total Bilirubin Cancelled Direct Bilirubin Cancelled AST Cancelled ALT Cancelled Alkaline Phosphatase Cancelled Troponin I Cancelled Total Protein Cancelled Albumin Cancelled Coagulation PT Cancelled INR Cancelled Hematology CBC w Diff Cancelled Cancelled WBC Cancelled Cancelled RBC Cancelled Cancelled Hgb Cancelled Cancelled Hct Cancelled Cancelled MCV Cancelled Cancelled MCH Cancelled Cancelled MCHC Cancelled Cancelled RDW Cancelled Cancelled Plt Count Cancelled Cancelled MPV Cancelled Cancelled Urines Urine Color Cancelled Urine Clarity Cancelled Urine pH Cancelled Ur Specific Vining Cancelled Urine Protein Cancelled Urine Ketones Cancelled Urine Nitrite Cancelled Urine Bilirubin Cancelled Urine Urobilinogen Cancelled Ur Leukocyte Esterase Cancelled Ur Microscopic Cancelled Urine Hemoglobin Cancelled Urine Glucose Cancelled
== END 2017-06-27 13:04 | disposition home health service (06) | DRG 551 ==
LOC: ERH 17:36 → 2NA 20:12 → ERHI 20:12 → ENRESERV 21:01 → ENTRNSPT 21:37 → 2NA 21:52 → CMPTRNSPT 22:05 → 2NA 06-25 07:51 → ENPENDDIS 06-27 12:04 → ENTRNSPT 06-27 12:47 → EDTRNSPTSTS 06-27 12:57 → 2NA 06-27 13:04 → CMPTRNSPT 06-27 13:09
PROVIDERS: Internal Medicine Nephrology; Student in an Organized Health Care Education/Training Program
PROC: 5A1D70Z Performance of Urinary Filtration, Intermittent, Less than 6 Hours Per Day (ICD-10-PCS; principal; 2017-06-25)
DX: S32.10XA Unspecified fracture of sacrum, initial encounter for closed fracture (principal); N18.6 End stage renal disease; E11.22 Type 2 diabetes mellitus with diabetic chronic kidney disease; E11.40 Type 2 diabetes mellitus with diabetic neuropathy, unspecified; C34.91 Malignant neoplasm of unspecified part of right bronchus or lung; J44.9 Chronic obstructive pulmonary disease, unspecified; E11.319 Type 2 diabetes mellitus with unspecified diabetic retinopathy without macular edema; Z79.01 Long term (current) use of anticoagulants; Z85.3 Personal history of malignant neoplasm of breast; Z90.12 Acquired absence of left breast and nipple; Z92.21 Personal history of antineoplastic chemotherapy; Z99.2 Dependence on renal dialysis; Z79.4 Long term (current) use of insulin; Z88.2 Allergy status to sulfonamides; Z88.8 Allergy status to other drugs, medicaments and biological substances; Z90.2 Acquired absence of lung [part of]; W05.0XXA Fall from non-moving wheelchair, initial encounter; Y92.009 Unspecified place in unspecified non-institutional (private) residence as the place of occurrence of the external cause; I10 Essential (primary) hypertension; E03.9 Hypothyroidism, unspecified; E78.5 Hyperlipidemia, unspecified; Z66 Do not resuscitate; R26.89 Other abnormalities of gait and mobility; Z99.3 Dependence on wheelchair; Z86.2 Personal history of diseases of the blood and blood-forming organs and certain disorders involving the immune mechanism; Z86.73 Personal history of transient ischemic attack (TIA), and cerebral infarction without residual deficits; Z85.118 Personal history of other malignant neoplasm of bronchus and lung
CPT/HCPCS: 2NAP; 74176; 82436; 93005; 93010; 96365; 97110-GO; 97162-GP; 97165-GO; 97530-GO; J0131; J0885